=== PATIENT | female | born 1980 | race Hispanic/Latino ===

== ENCOUNTER 2017-06-12 13:31 | Emergency (ER) | payer MEDICAID, SELFPAY ==
[2017-06-12 13:32] VITALS: BP 177/88; PULSE 91; RESP 18; TEMP 37.1; O2SAT 98; BMI 54.8
--- NOTE | 2017-06-12 13:55 | ED.DCSUM_ITS ---
- ER Visit Summary Date of Service: 06/12/17 Chief Complaint: Dental pain History of Present Illness: The patient is a 37 F states she has had mild jaw pain for the past couple of days. She woke this morning with swollen painful gums and some neck pain. She denies fever. Physical Examination: Blood pressure is 177/88, otherwise vitals are normal. Patient is obese female sitting in a bedside chair. She is in no acute distress and appears quite comfortable. Head and neck examination reveals no obvious facial edema or erythema. TMs are clear bilaterally. Intraoral examination reveals the gums around the mandibular central incisors to be edematous and tender to palpation. She has no trismus. There is no tongue elevation or sign of Charanjit's. She is tolerating secretions well and has a strong voice. She does have cervical lymphadenopathy of the left anterior chain. Heart is regular rate and rhythm. Lung sounds are clear. Test Results: [] Emergency Department Course and Treatment: Patient be treated with Pen-Vee K, first dose given here. She is given a dental referral list for follow-up. Treatment Plan: [] Disposition: Discharge Impression: Odontalgia This note was generated with [employer] dictation software. It may contain incorrect words, spelling, and punctuation that were not noted in review of the chart prior to signing ED Disposition - Plan for ED Patient: Chief Complaint: Dental Referrals: Senait Cherry DO [Primary Care Provider] -
--- NOTE | 2017-06-12 13:55 | ED.DEP ---
ED Disposition - Plan for ED Patient: Disposition: Home or Assisted Living Chief Complaint: Dental Instructions: ED Tooth Pain Prescriptions: Penicillin V Potassium 500 mg PO 4X/DAY #40 tablet Additional Instructions: Dental list provided.
[2017-06-12] MEDS: Penicillin Vk 250 MG Tablet 500 MG PO (14:03)
== END 2017-06-12 14:05 | disposition home or self-care (01) ==
PROVIDERS: Emergency Provider Emergency Medicine; Family Provider Family Medicine; PCP Family Medicine
DX: K08.89 Other specified disorders of teeth and supporting structures (principal); I10 Essential (primary) hypertension; E66.9 Obesity, unspecified; Z68.43 Body mass index [BMI] 50.0-59.9, adult; Z79.899 Other long term (current) drug therapy
CPT/HCPCS: 99283

== ENCOUNTER 2017-10-02 12:59 | Emergency (ER) | payer MEDICAID, SELFPAY ==
[2017-10-02 13:00] VITALS: BP 154/79; PULSE 89; RESP 16; TEMP 37.1; O2SAT 98; BMI 57.9
--- NOTE | 2017-10-02 13:20 | VDLE_ITS ---
Reason For Study: Swelling RIGHT LEFT GSV is normal. GSV is normal. CFV is compressible, spontaneous, phasic, CFV is compressible, spontaneous, phasic, competent and demonstrates normal competent, and demonstrates normal augmentation. augmentation. FV is compressible, spontaneous, phasic, FV is compressible, spontaneous, phasic, competent and demonstrates normal competent and demonstrates normal augmentation. augmentation. POP V is compressible, spontaneous, phasic, POP V is compressible, spontaneous, phasic, competent and demonstrates normal competent and demonstrates normal augmentation. augmentation. T/P Trunk is compressible. T/P Trunk is compressible. PTV is compressible. PTV is compressible. RT PerV is compressible. LT PerV is compressible. Procedure Exam performed portable in ED. A preliminary report was called and/or faxed to Dr. Hall. Interpretation Summary Deep veins of the lower extremities are bilaterally patent and compressible segmentally. There is no evidence of deep vein thrombosis on either side. Valvular competence appears intact within the proximal deep venous systems bilaterally. The greater saphenous veins appear bilaterally patent and compressible segmentally. Ordering Physician: Moses Hall Referring Physician: Senait Cherry Performed By: Christine Joe, NICOLE, RVT
[2017-10-02 14:14] LABS: Anion Gap 7 (5-15); BUN 10 mg/dL (7-18); BUN/Creat Ratio 12.7 RATIO (10-20); Calcium,Total 8.8 mg/dL (8.5-10.1); Chloride 106 mmol/L (98-107); Creatinine, Serum 0.79 mg/dL (0.55-1.02); EST Glomerular Filtration Rate 87 mL/min (>60); Est Glom Filt Rate - Afr Amer 105 mL/min (>60); Estimated Creatinine Clearance 91.27 ml/min; Glucose 157 mg/dL (74-106); Potassium 3.8 mmol/L (3.5-5.1); Sodium Level 140 mmol/L (136-145)
--- NOTE | 2017-10-02 14:28 | ED.VISSUMM ---
- ER Visit Summary Date of Service: 10/02/17 Chief Complaint: [Bilateral lower extremity edema] History of Present Illness: The patient is a 37 F [presents the emergency department with complaint of swelling in her legs over last 2 weeks. Patient's noticed swelling more when she is up and active. Patient had some discomfort into her right calf and right thigh with swelling. Patient denies any chest pain or shortness of breath. Patient denies recent travel or surgery. Patient at times had some tingling in her right foot. Patient does have a history of hypertension, sleep apnea, and palpitations. Patient states that she used to be on a water pill but has not been for some time.] Physical Examination: [HEENT-PERRLA, EOMI. Cranial nerves II through XII grossly intact. TMs clear. Mucous membranes moist. No adenopathy. Cardiovascular-regular rate and rhythm without murmur or ectopy Lungs-clear to auscultation, chest wall stable without crepitus or subcu emphysema Abdomen-normoactive bowel sounds, soft, nontender, no rebound or rigidity, no peritoneal signs. Extremities-intact ?4, normal range of motion, normal pulses, atraumatic]. No significant edema of the lower extremities noted. Test Results: [BMP obtained showed normal chemistries and a BUN of 10 and a creatinine of 0.79. Glucose was slightly elevated 157. Venous Dopplers of both lower extremities were negative for DVT.] Emergency Department Course and Treatment: [] Treatment Plan: [Patient advised to follow-up with her primary care physician within next 3-5 days. Patient advised that she may want to wear compression stockings and discussed with her primary care physician about possibly restarting a diuretic] Disposition: [Discharged home stable condition.] Impression: [Bilateral lower extremity edema suspect venous insufficiency.] This note was generated with [employer] dictation software. It may contain incorrect words, spelling, and punctuation that were not noted in review of the chart prior to signing ED Disposition - Plan for ED Patient: Chief Complaint: Edema Referrals: Senait Cherry DO [Primary Care Provider] -
--- NOTE | 2017-10-02 14:30 | ED.DEP ---
ED Disposition - Plan for ED Patient: Chief Complaint: Edema Instructions: ED Leg Swelling Bilateral Referrals: Senait Cherry DO [Primary Care Provider] - 3-5 Days
[2017-10-02 14:43] VITALS: BP 165/89; PULSE 68; RESP 14; O2SAT 96
== END 2017-10-02 14:44 | disposition home or self-care (01) ==
PROVIDERS: Emergency Provider Emergency Medicine; Family Provider Family Medicine; PCP Family Medicine
DX: R60.0 Localized edema (principal); I10 Essential (primary) hypertension; Z79.899 Other long term (current) drug therapy
CPT/HCPCS: 36415; 80048; 93970; 99282

== ENCOUNTER 2019-01-04 13:33 | Emergency (ER) | payer MEDICAID, SELFPAY ==
[2018-08-25 11:09] VITALS: BMI 56.6
[2019-01-04] VITALS (7 sets, daily range): BP systolic 104–159; BP diastolic 66–85; PULSE 80–92; RESP 14–18; TEMP 36.6; O2SAT 96–98; BMI 54.3
--- NOTE | 2019-01-04 14:11 | EKG12_ITS ---
Test Reason : CP Blood Pressure : / mmHG Vent. Rate : 085 BPM Atrial Rate : 085 BPM P-R Int : 146 ms QRS Dur : 072 ms QT Int : 374 ms P-R-T Axes : 031 044 028 degrees QTc Int : 445 ms Normal sinus rhythm with sinus arrhythmia Normal ECG Confirmed by JEFF PAREDES, VIDAL ([id number]), copy editor GOPI RIVERO ([id number]) on 01/07/2019 10:53:16 AM Referred By: ROLDAN Confirmed By:VIDAL AGUILAR MD
--- NOTE | 2019-01-04 14:15 | RAD_ITS ---
STUDY: X-RAY CHEST REASON FOR EXAM: Female, 39 years old. Chest pain. TECHNIQUE: Single AP portable view of the chest. COMPARISON: Comparison is made with prior study dated August 24, 2015. FINDINGS: EKG lead clips are seen. The lungs are clear and expanded. There is no demonstrated pleural abnormality. Normal size heart. Normal mediastinum and brendan. Normal visualized pulmonary arteries. Normal visualized aortic arch and descending thoracic aorta. Normal visualized thoracic spine. Normal visualized ribs, clavicles, and shoulders. There is no demonstrated abnormality of the visualized soft tissue structures of the upper abdomen. RAD/Chest 1 View (Portable) IMPRESSION: Normal x-ray examination of the chest. Electronically Signed: Fabian Toledo, at 14:38 EDT , Service support ,
[2019-01-04 14:24] LABS: Absolute Lymphocyte Count 1.61 X10^3/uL (0.83-4.51); Absolute Neutrophil Count 2.9 X10^3/uL (2.0-7.7); Basophil# 0.01 X10^3/uL; Basophil% 0.2 % (0-1); Eosinophil# 0.08 X10^3/uL; Eosinophils% 1.6 % (0-5); Hematocrit 32.9 % (37-47); Hemoglobin 9.4 g/dL (12.0-15.0); Lymphocyte # 1.61 X10^3/ul (4.0); Lymphocyte % 33.1 % (19-41); Mean Corp Hgb Conc 28.6 g/dL (32-36); Mean Corpuscular Hgb 19.1 pg (27.0-32.0); Mean Corpuscular Volume 66.9 fL (81-99); Mean Platelet Vol. 10.3 fl (6.2-12.0); Monocyte# 0.27 X10^3/uL; Monocyte% 5.6 % (0-10); NRBC Flagged by Analyzer 0 % (0-5); Neutrophil # 2.87 X10^3/uL (2.7-7.7); Neutrophil % 59.1 % (47-70); Platelet Count 220 K/mm3 (150-450); RBC Distribution Width CV 15.9 % (11.6-14.6); RBC Distribution Width SD 37.6 fl (35.1-43.9); Red Blood Count 4.92 M/mm3 (4.2-5.4); White Blood Count 4.9 K/mm3 (4.4-11.0)
[2019-01-04 14:37] LABS: D-Dimer Quantitative (DVT/PE) < 0.27 FEU/ug/m (0.27-0.49)
[2019-01-04] MEDS: Aspirin 81 MG TAB.CHEW 324 MG PO (14:38)
[2019-01-04] MEDS: 0.9% Normal Saline 1,000 ML 150 ML IV (14:39)
[2019-01-04] MEDS: Nitroglycerin SL (ED/IMG/CATH) 0.4 MG TABLET SUBLINGUAL ×3 (14:40→15:04)
[2019-01-04 14:43] LABS: Anion Gap 8 (5-15); BUN 9 mg/dL (7-18); Calcium,Total 8.9 mg/dL (8.5-10.1); Chloride 105 mmol/L (98-107); Creatinine, Serum 0.69 mg/dL (0.55-1.02); EST Glomerular Filtration Rate 100 mL/min (>60); Est Glom Filt Rate - Afr Amer 121 mL/min (>60); Estimated Creatinine Clearance 102.47 ml/min; Glucose 208 mg/dL (74-106); Potassium 3.5 mmol/L (3.5-5.1); Sodium Level 139 mmol/L (136-145)
--- NOTE | 2019-01-04 15:11 | ED.DCSUM_ITS ---
- ER Visit Summary Date of Service: 01/04/19 Chief Complaint: [Chest pain History of present illness: The patient is a 39-year-old female who presents to the emergency department chest discomfort that started around 3:30 AM. Patient states that she woke up with a tightness across her chest and at times feels it up into her back. Patient states that she is had chronic chest pain issues and has been evaluated by cardiology and has been told that her heart is fine. Patient does have a history of hypertension and history of GERD. Patient also has some chronic neck pain issues and she is not sure if the paresthesias intermittently in her arm are related to her neck.] Patient denies any recent travel or surgery. No significant family history of heart disease. Physical Examination: [HEENT-PERRLA, EOMI. Cranial nerves II through XII grossly intact. TMs clear. Mucous membranes moist. No adenopathy. Cardiovascular-regular rate and rhythm without murmur or ectopy Lungs-clear to auscultation, chest wall stable without crepitus or subcu emphysema Abdomen-normoactive bowel sounds, soft, nontender, no rebound or rigidity, no peritoneal signs. Extremities-intact ?4, normal range of motion, normal pulses, atraumatic] Test Results: [EKG obtained on arrival shows sinus rhythm with a ventricular rate of 85 bpm with patient with PACs. CBC with differential obtained was normal. Chemistries unremarkable. Troponin is less than 1015. D-dimer was less than 0.27. Chest x-ray was normal.] Emergency Department Course and Treatment: [Patient initially received aspirin and was given sublingual nitro which may have helped her discomfort minimally. Patient was also ordered a GI cocktail.] Treatment Plan: [Patient advised to follow-up with primary care physician within next 3 to 5 days. Patient is considered low risk HEAVEN score of 0. Patient had a heart score of 1.] Disposition: [Discharged home in stable condition.] Impression: [Chest pain-etiology uncertain] This note was generated with [employer] dictation software. It may contain incorrect words, spelling, and punctuation that were not noted in review of the chart prior to signing ED Disposition - Plan for ED Patient: Referrals: Senait Cherry DO [Primary Care Provider] -
--- NOTE | 2019-01-04 15:15 | ED.DEP ---
ED Disposition - Plan for ED Patient: Instructions: CHEST PAIN, Uncertain Cause Referrals: Senait Cherry DO [Primary Care Provider] - 3-5 Days
[2019-01-04 15:35] LABS: Erythrocyte Sedimentation Rate 30 mm/hr (0-20)
[2019-01-04] MEDS: Mag Hydrox/Al Hydrox/Simeth 30 ML UDC PO (15:37)
--- NOTE | 2019-01-04 15:42 | ED.RN ---
PT GIVEN WRITTEN AND VERBAL DISCHARGE INSTRUCTIONS. PT VERBALIZES UNDERSTANDING AND DENIES ANY FURTHER QUESTIONS. IV D/C AND COVERED WITH 2X2 GAUZE AND PAPER TAPE. PT DRESSES SELF AND AMBULATES OUT OF DEPT BY SELF.
== END 2019-01-04 15:44 | disposition home or self-care (01) ==
LOC: ED 14:33
PROVIDERS: Emergency Provider Emergency Medicine; Family Provider Family Medicine; PCP Family Medicine
DX: R07.9 Chest pain, unspecified (principal); I10 Essential (primary) hypertension; K21.9 Gastro-esophageal reflux disease without esophagitis; Z79.899 Other long term (current) drug therapy
CPT/HCPCS: 71045; 80048; 84484; 85025; 85379; 85652; 93005; 96360; 99285; A4216

== ENCOUNTER 2019-02-12 17:46 | Emergency (ER) | payer MEDICAID, SELFPAY ==
[2019-01-04 13:34] VITALS: BMI 54.3
[2019-02-12 17:46] VITALS: BP 159/80; PULSE 90; RESP 17; TEMP 36.1; O2SAT 96; BMI 54.2
--- NOTE | 2019-02-12 18:27 | ED.VISSUMM ---
- ER Visit Summary Date of Service: 02/12/19 Chief Complaint: Dental pain History of Present Illness: The patient is a 39 F who states that she woke today she had some left mandible facial swelling. She notes some swelling and tenderness along her gumline. She has an appointment in March with dentistry. States she has not been to the dentist for a while. Physical Examination: Afebrile vital signs stable Left lower gumline shows some mild erythema and some very early erosion of the molar area. There is an area of focal swelling over the medial aspect of the premolars. Floor the mouth is soft. Mandible is tender on the left. No overlying facial erythema or significant swelling. There is no trismus. Emergency Department Course and Treatment: Patient will be started on penicillin and chlorhexidine rinse. She was advised to call her dentist on Thursday and see if she can get an earlier Impression: 1. Dental abscess This note was generated with [employer] dictation software. It may contain incorrect words, spelling, and punctuation that were not noted in review of the chart prior to signing ED Disposition - Plan for ED Patient: Disposition: Home or Assisted Living Instructions: Dental Abscess Prescriptions: Chlorhexidine Gluconate [Paroex] 15 ml MM BID #1 bottle Prescription Printed Penicillin V Potassium 500 mg PO 4X/DAY #40 tab Prescription Printed Additional Instructions: Call your dentist on Thursday to see if he can get an earlier
[2019-02-12 18:40] VITALS: BP 148/78; PULSE 92; RESP 15; O2SAT 96
== END 2019-02-12 18:41 | disposition home or self-care (01) ==
LOC: ED 18:34
PROVIDERS: Emergency Provider Emergency Medicine; Family Provider Family Medicine; PCP Family Medicine
DX: K04.7 Periapical abscess without sinus (principal); I10 Essential (primary) hypertension; Z79.899 Other long term (current) drug therapy
CPT/HCPCS: 99282

== ENCOUNTER 2019-02-13 21:38 | Emergency (ER) | payer MEDICAID, SELFPAY ==
[2019-02-12 17:46] VITALS: BMI 54.2
[2019-02-13 21:39] VITALS: BP 148/81; PULSE 86; RESP 15; TEMP 36.6; O2SAT 96; BMI 54.3
--- NOTE | 2019-02-13 22:20 | ED.DCSUM_ITS ---
History of Present Illness Chief Complaint: Abscess Informant: Patient Narrative: Stated she was seen here yesterday and started antibiotics today for a left lower dental infection. She noticed she had a tender lymph node in her left posterior neck. She was told if she develops any new swelling to come in for for further evaluation. She is using [id number]'s for this. Patient denies any fevers or chills. Current severity is mild. There is no redness. There is no drainage to her mouth. - Past Medical History (1) HTN (hypertension), benign Status: Chronic (2) Heart palpitations Status: Chronic (3) Menorrhagia with irregular cycle Status: Chronic (4) GAUTAM (obstructive sleep apnea) Status: Chronic (5) H/O section Status: Resolved Comment: X 4 (6) History of lumpectomy Status: Resolved Past Medical History - Allergies and Home Meds Allergies/Adverse Reactions: Allergies No Known Allergies Allergy (Verified 02/12/19 17:46) Primary Care Physician: Senait Cherry DO [Primary Care Provider] - Prior records reviewed: Yes Past Medical History: - - See problem list Surgical History: noncontributory Lives: With Family Smoking Status: Current every day smoker Alcohol: None Drugs: None Review of Systems General: Denies: Chills, Fever, Sweats Eyes: Denies: Visual changes - bilaterally, Diplopia ENT: Denies: Rhinorrhea, Sore throat Cardiovascular: Denies: Chest pain, Palpitations Respiratory: Denies: Dyspnea, Cough, Dyspnea on exertion Gastrointestinal: Denies: Abdominal pain, Nausea, Vomiting, Diarrhea, Melena, Hematochezia Genitourinary: Denies: Dysuria, Hematuria, Frequency Musculoskeletal: Reports: Neck pain - See HPI. Denies: Back pain, Extremity Pain Skin: Denies: Rash, Wounds Neurological: Denies: Headache, Weakness, Numbness Physical Exam Vital Signs/Narrative: Vital Signs Temp Pulse Resp BP Pulse Ox 02/13/19 21:39 97.8 F 86 15 148/81 H 96 General: Well nourished, Well developed, No Acute Distress Head: Normocephalic, Atraumatic Eyes: Perrl, EOMI ENT: Moist mucous membranes, No rhinorrhea Neck: Supple, Nontender, - - Mild lymph node in the left posterior cervical chain. Very mild tenderness to this area. No sublingual fullness. No evidence of Saeid's angina total exam shows no dental abscess in the gumline. No s welling noted. No facial swelling. Cardiovascular: Regular rate, Regular rhythm, No murmurs Respiratory: No distress, CTA bilaterally, Chest nontender Abdomen: Soft, Nontender, Nondistended, Normal bowel sounds Back: Nontender, Normal Inspection Extremities: Nontender, No edema Skin: Normal color, No rash Neurological: Alert, Oriented x3, Cranial nerves II-XII grossly intact, Normal Strength, Normal Sensation Psychological: Normal affect, Normal Mood Diagnostic/Tx/Re-eval - Medical Decision Making Patient reassured. There is no evidence of Ludewig's angina or spread. She will continue her antibiotics and therapy at home and will follow-up with dentist. Given 1 dose of oxycodone ED Disposition - Plan for ED Patient: Disposition: Home or Assisted Living Diagnosis: Lymph node enlargement Instructions: Dental Abscess Referrals: Senait Cherry DO [Primary Care Provider] -
[2019-02-13 22:33] VITALS: RESP 16
[2019-02-13] MEDS: oxyCODONE 5 MG Tablet 10 MG PO (22:33)
== END 2019-02-13 22:34 | disposition home or self-care (01) ==
PROVIDERS: Emergency Provider Emergency Medicine; Family Provider Family Medicine; PCP Family Medicine
DX: R59.0 Localized enlarged lymph nodes (principal); K04.7 Periapical abscess without sinus; I10 Essential (primary) hypertension; F17.200 Nicotine dependence, unspecified, uncomplicated; Z79.899 Other long term (current) drug therapy
CPT/HCPCS: 99282

== ENCOUNTER → 2019-04-19 08:42 | Outpatient (CLI) | payer MEDICAID, SELFPAY ==
--- NOTE | 2019-04-19 08:50 | BI_ITS ---
MAMMOGRAPHY - BILATERAL DIAGNOSTIC REASON FOR EXAM: Female, 39 years old. Left retroareolar breast. PERTINENT HISTORY: Remote left excisional breast biopsy TECHNIQUE: Digital bilateral breast danyell (3D mammographic acquisition) in the CC and MLO projections. 2-D mediolateral oblique (MLO) and craniocaudad (CC) views of both breasts were obtained. CAD: Full Field Digital Mammography with Computer Added Detection was performed. COMPARISON: None. Baseline examination. FINDINGS: Breast Composition: The breasts are almost entirely fatty. There are no dominant masses or suspicious calcifications. Benign appearing bilateral axillary nodes. No other significant abnormalities are identified. BI/DIAG MAMM W/CAD, BILAT IMPRESSION: Negative diagnostic mammogram. With the patient''s history of a palpable lump in the left breast, correlation with ultrasound is recommended. ASSESSMENT CATEGORY: BIRADS Category 0: Incomplete. Need additional imaging evaluation. A letter regarding these results will be sent to the patient by the facility within 30 days. Approximately 10% of breast cancers are not detected by mammography. A normal mammogram should not delay biopsy of a clinically suspicious abnormality. Electronically Signed: Fabian Toledo, at 10:46 EST , Service support ,
--- NOTE | 2019-04-19 09:00 | US_ITS ---
STUDY: ULTRASOUND BREAST - LEFT REASON FOR EXAM: Female, 39 years old. Palpable lump left breast. TECHNIQUE: Axial and longitudinal images of the LEFT breast were performed with a high resolution ultrasound transducer. # OF IMAGES: 13 COMPARISON: Comparison is made with prior mammogram done earlier today. FINDINGS: LEFT Breast: The palpable abnormality corresponds to a 1.6 cm x 1.8 cm x 0.5 cm heterogeneous density with the central fluid component in the subcutaneous tissue just deep to the skin. This most likely represents an infected sebaceous cyst. Clinical correlation recommended. US/Breast Limited Unilateral IMPRESSION: Abundant amount to correspond to 1.6 cm x 1.8 cm x 0.5 cm heterogeneous superficial density suggestive of an infected sebaceous cyst. Clinical correlation is recommended. ASSESSMENT CATEGORY: BIRADS Category 2: Benign. A letter regarding these results will be sent to the patient by the facility within 30 days. Electronically Signed: Fabian Toledo, at 12:04 EST , Service support ,
== END ==
PROVIDERS: PCP Family Medicine; Referring Provider Obstetrics & Gynecology; Visit Provider Obstetrics & Gynecology
DX: N63.23 Unspecified lump in the left breast, lower outer quadrant (principal)
CPT/HCPCS: 76642; 77062; 77066; G0279

== ENCOUNTER 2020-03-13 16:16 | Emergency (ER) | payer MEDICAID, SELFPAY ==
[2019-07-28 13:58] VITALS: BMI 50.5
[2020-03-13 16:17] VITALS: BP 153/90; PULSE 88; RESP 16; TEMP 35.3; O2SAT 97; BMI 53.2
[2020-03-13 16:48] LABS: Bacteria 0 SEEN /hpf (None Seen); Mucous, Urine 0 SEEN /hpf (<or=2+)
[2020-03-13 17:01] LABS: Internal QC Validated? YES +Cl - CLEAR BKGD; Pregnancy, Urine Negative Negative
[2020-03-13 17:04] LABS: Color, Urine Yellow (Yellow); Glucose, Dipstick 1000 mg/dl (Normal); Ketone-Dipstick Negative (Negative); Leukocyte Esterase-Dipstick 500 /ul (Negative); Nitrite-Dipstick Negative (Negative); Occult Blood-Urine 250 /ul (Negative); Protein-Dipstick 15 mg/dl (Negative); Urine Bilirubin Dipstick Negative (Negative); Urine Clarity Cloudy (Clear); Urine Urobilinogen Normal (Normal)
[2020-03-13 17:25] LABS: Red Blood Cells-Urine 50-100 SEEN /hpf (0-5); Squamous Epithelial Cells - UA 0-5 SEEN /hpf (5-10); White Blood Cells 50-100 SEEN /hpf (0-5)
--- NOTE | 2020-03-13 17:36 | ED.VISSUMM ---
- ER Visit Summary Date of Service: 03/13/20 Chief Complaint: UTI History of Present Illness: The patient is a 40 F with 4 days of dysuria and frequency. She had some clots as well but they resolved. She is not on blood thinners. No history of cancer. No history of kidney stones. No other history of kidney or bladder problems. Physical Examination: Afebrile and vital signs unremarkable. Back is nontender. Exam unremarkable. Test Results: Urinalysis shows signs of urine infection with microscopic hematuria. hCG negative. Culture pending. Emergency Department Course and Treatment: Patient declined pain meds. She was treated with Macrobid here. Follow-up as an outpatient. Patient notified that she is spilling glucose in her urine. No known history of diabetes. She will follow-up with her doctor for further evaluation. Treatment Plan: As above Disposition: Discharge Impression: UTI, cystitis with hematuria This note was generated with [employer] dictation software. It may contain incorrect words, spelling, and punctuation that were not noted in review of the chart prior to signing ED Disposition - Plan for ED Patient: Instructions: ED Bladder Infection, Female (Adult) Prescriptions: Nitrofurantoin Macrocrystals [Macrobid] 100 mg PO Q12 #10 cap Prescription Printed Referrals: Senait Cherry DO [Primary Care Provider] -
[2020-03-13] MEDS: Nitrofurantoin Macrocrystals 100 MG Capsule PO (17:45)
== END 2020-03-13 17:47 | disposition home or self-care (01) ==
LOC: ED 16:38
PROVIDERS: Emergency Provider Emergency Medicine; PCP Family Medicine
DX: N30.91 Cystitis, unspecified with hematuria (principal); I10 Essential (primary) hypertension; Z72.0 Tobacco use
CPT/HCPCS: 81001; 81025; 87086; 87088; 99283

== ENCOUNTER 2020-08-10 22:10 | Emergency (ER) | payer MEDICAID, SELFPAY ==
[2020-08-10 22:11] VITALS: BP 156/105; PULSE 88; RESP 16; TEMP 36.8; O2SAT 96; BMI 51.7
--- NOTE | 2020-08-10 23:04 | EX.ED.DYSGE1 ---
HPI History of Present Illness Chief Complaint: Other, Pain/Inj Detail of Chief Complaint: Left neck and shoulder pain Informant: patient Onset/Context/Timing Onset: Days (4 days) Context: Gradual Onset Timing: Waxes and wanes Current Severity: Moderate Maximum Severity: Moderate Narrative Narrative: Patient presents with left-sided neck and shoulder pain. Patient reports having similar in the past but usually will go away after couple days. She states today is day 4 and pain has not let up yet. She has no recent injury. No paresthesias or arm weakness. She is been alternating Tylenol and ibuprofen without improvement. [facility] Medical History (Updated 08/10/20 @ 23:[address] Ana Whitfield MD) Back pain Essential (primary) hypertension Intermittent palpitations Menorrhagia with irregular cycle GAUTAM (obstructive sleep apnea) Home Medications valacyclovir 500 mg tablet 1 tab PO DAILY 05/28/19 [History Last Taken Unknown] lisinopril 20 mg tablet 20 mg PO DAILY #90 tab 12/23/19 [Rx Last Taken Unknown] amlodipine 10 mg tablet 10 mg PO DAILY #30 tab 01/02/20 [Rx Last Taken Unknown] metoprolol succinate 50 mg tablet,extended release 24 hr 50 mg PO QDAY #30 tab 01/02/20 [Rx Last Taken Unknown] omeprazole 40 mg capsule,delayed release 40 mg PO DAILY #30 cap 02/16/20 [Rx Last Taken Unknown] nitrofurantoin monohyd/m-cryst 100 mg PO Q12 #10 cap 03/13/20 [Rx Last Taken Unknown] cyclobenzaprine 10 mg PO BID PRN #10 tab 08/10/20 [Rx Last Taken Unknown] lidocaine [Lidoderm] 2 patch TOPICAL DAILY PRN #8 ea 08/10/20 [Rx Last Taken Unknown] naproxen [Naprosyn] 500 mg PO BID PRN #20 tab 08/10/20 [Rx Last Taken Unknown] Allergy/AdvReac Type Severity Reaction Status Date / Time No Known Allergies Allergy Verified 08/10/20 22:13 Family History Father Hypertension Diabetes Heart disease Mother Diabetes Hypertension Surgical History H/O section History of lumpectomy Social History Smoking Status: Never smoker alcohol intake: never substance use type: does not use caffeine: Yes Type: tea Number of servings: 6 ROS ROS ED Constitutional Constitutional ED: Denies chills or fever(s) Eyes Eyes: Denies change in vision ENT ENT ED: Denies sore throat Cardiovascular Cardiovascular: Denies chest pain Respiratory/Chest Respiratory/Chest: Denies cough or dyspnea Gastrointestinal Gastrointestinal: Denies abdominal pain, diarrhea, nausea or vomiting Genitourinary Genitourinary ED: Denies dysuria Musculoskeletal Musculoskeletal: Reports arthralgias and neck pain Integumentary Denies rash Neurologic Neurologic: Denies headache(s), paresthesias or weakness Psychiatric Psychiatric: Denies anxiety or depression Endocrine Endocrinology: Denies polydipsia or polyuria Allergic/Immunologic Allergic/Immunologic ED: Denies urticaria EXAM Physical Exam Const Vital Signs: 08/10/20 22:11 Temperature 98.2 F Temperature Source Temporal Pulse Rate 88 Respiratory Rate 16 Blood Pressure 156/105 H Blood Pressure Mean 122 Pulse Ox 96 Oxygen Delivery Method Room Air Positive well nourished and well developed General Appearance ED: well developed HEENT Reports normocephalic and head/scalp atraumatic Eyes PERRL and EOMs intact bilaterally Neck supple Neck Narrative: No midline cervical tenderness. Reproducible tenderness in the left cervical paraspinal muscles. Lymph Lymphatic Narrative: Small enlarged lymph node just beneath the left ear. No overlying cellulitis or sign of infection. Chest Wall inspection of chest normal and palpation of chest normal Resp normal respiratory effort and clear to auscultation bilaterally Cardio regular rate and regular rhythm GI normal to inspection, nondistended, normoactive bowel sounds Palpation: soft Back/Spine no CVA tenderness Extremity normal to inspection Extremity Narrative: Muscular tenderness over the top of the left shoulder. Full range of motion at the shoulder itself with strong distal pulses. Neuro oriented x3 and no sensory deficits noted Sensorium / Orientation: alert Motor Exam: strength 5/5 throughout Psych mental status grossly normal Skin no rashes or lesions noted [facility] Treatment and Re-Evaluation Comments:: Patient has evidence of muscle strain with spasm. She will be given a Lidoderm patch, naproxen, and Flexeril. First doses are given here and patient's prescriptions will be sent to [facility] for her. Discharge Plan Triage Chief Complaint: Other, Pain/Inj ED Provider: Ana Whitfield Dx/Rx/DC Orders Clinical Impression: Muscle spasm Instructions: ED Muscle Spasm Prescriptions: New lidocaine [Lidoderm] 5 % adhesive patch,medicated 2 patch topical DAILY PRN (Reason: muscle spasm) Qty: 8 RF: 0 naproxen [Naprosyn] 500 mg tablet 500 mg PO BID PRN (Reason: pain) Qty: 20 RF: 0 cyclobenzaprine 10 mg tablet 10 mg PO BID PRN (Reason: muscle spasm) Qty: 10 RF: 0 No Action valacyclovir 500 mg tablet 1 tab PO DAILY RF: 0 nitrofurantoin monohyd/m-cryst 100 MG capsule 100 mg PO Q12 Qty: 10 RF: 0 lisinopril 20 mg tablet 20 mg PO DAILY Qty: 90 RF: 3 metoprolol succinate 50 mg tablet extended release 24 hr 50 mg PO QDAY Qty: 30 RF: 11 amlodipine 10 mg tablet 10 mg PO DAILY Qty: 30 RF: 11 omeprazole 40 mg capsule,delayed release(DR/EC) 40 mg PO DAILY Qty: 30 RF: 11 Primary Care Provider: Senait Cherry Referrals: Senait Cherry DO [Primary Care Provider] - 3-5 Days if not improving Disposition Disposition: Home, self care
[2020-08-10] MEDS: Naproxen 500 MG Tablet PO (23:31)
[2020-08-10] MEDS: cycloBENZAPRine HCl 10 MG Tablet PO (23:31)
[2020-08-10] MEDS: Lidocaine 5% Patch 1 PATCH TOPICAL (23:31)
[2020-08-10 23:39] VITALS: BP 148/80; PULSE 82; RESP 18
== END 2020-08-10 23:39 | disposition home or self-care (01) ==
LOC: ED 23:14
PROVIDERS: Emergency Provider Emergency Medicine; PCP Family Medicine
DX: M62.838 Other muscle spasm (principal); I10 Essential (primary) hypertension; Z79.899 Other long term (current) drug therapy
CPT/HCPCS: 99284

== ENCOUNTER → 2020-08-23 11:33 | Outpatient (CLI) | payer MEDICAID, SELFPAY ==
[2020-08-10 22:11] VITALS: BMI 51.7
[2020-08-23 12:57] LABS: Hemoglobin A1c 11.7 % (3.8-5.6); T4 Free Direct 1.29 ng/dL (0.76-1.46); Thyroid Stim Hormone (TSH) 1.56 uIU/mL (0.358-3.74)
== END ==
PROVIDERS: PCP Family Medicine; Visit Provider Student in an Organized Health Care Education/Training Program
DX: Z13.1 Encounter for screening for diabetes mellitus (principal)
CPT/HCPCS: 36415; 83036; 84439; 84443

== ENCOUNTER → 2020-09-06 12:04 | Outpatient (CLI) | payer MEDICAID, SELFPAY ==
[2020-08-10 22:11] VITALS: BMI 51.7
--- NOTE | 2020-09-06 12:07 | BI_ITS ---
MAMMOGRAPHY - BILATERAL SCREENING 3-D TOMOSYNTHESIS REASON FOR EXAM: Female, 40 years old. SCREENING PERTINENT HISTORY: No significant family history. TECHNIQUE: 2-D mammograms and 3-D Tomosynthesis of the breast (s) were performed. CAD was performed. COMPARISON: 04/19/2019 FINDINGS: The breast composition is of fatty tissue. Scattered benign calcifications are seen particularly on the left. No dense spiculated masses or suspicious microcalcifications are identified. No architectural distortion is identified. There is no skin thickening or nipple retraction. Benign-appearing lymph nodes noted in the axillary areas. There has been no significant change since the prior study since the study of 04/19/2019 BI/SCRN MAMM (CAD)W/CARMINE BILAT IMPRESSION: No mammographic signs of malignancy. Routine yearly mammograms recommended. ASSESSMENT CATEGORY: BIRADS Category 1: Negative. A letter regarding these results will be sent to the patient by the facility within 30 days. FOLLOW UP RECOMMENDATION: Yearly follow up mammogram recommended. (A) Approximately 10% of breast cancers are not detected by mammography. A normal mammogram should not delay biopsy of a clinically suspicious abnormality. Electronically Signed: Yu Farias, at 12:46 EDT Tel , Service support ,
== END ==
PROVIDERS: PCP Family Medicine; Referring Provider Student in an Organized Health Care Education/Training Program; Visit Provider Student in an Organized Health Care Education/Training Program
DX: Z12.31 Encounter for screening mammogram for malignant neoplasm of breast (principal)
CPT/HCPCS: 77063; 77067

== ENCOUNTER 2020-10-11 14:43 | Emergency (ER) | payer MEDICAID, SELFPAY ==
[2020-10-11 14:44] VITALS: BP 149/82; PULSE 84; RESP 15; TEMP 36.3; O2SAT 100; BMI 47.9
--- NOTE | 2020-10-11 17:31 | EDS_ITS ---
HPI History of Present Illness Chief Complaint: Lower Extremity Injury Informant: patient Narrative Narrative: Patient is a 40-year-old female with history of chronic back pain, hypertension newly diagnosed diabetes mellitus presenting with right-sided low back pain that radiates to her leg. Patient states that she been having intermittent pain in her back and right lower quadrant for the past few weeks. She states sometimes the pain becomes very sharp and radiates down her legs. She notes that her leg started to give out when the pain is severe. She been taking Tylenol and ibuprofen for her pain. Patient notes that she gets tingling in both her toes and her feet. She states she was just diagnosed with diabetes mellitus and started Metformin. Her A1c was 11 or 12. Patient denies any urinary symptoms including hematuria, incontinence or hematuria. She denies any saddle anesthesia. Denies any bowel incontinence. She notes her pain is worse with movement and activity. 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 This seems to be exacerbating her pain. No report of any fever or chills. [facility] Medical History (Updated 10/11/20 @ 17:[address] Yazmin Vargas, DO) Back pain Essential (primary) hypertension Intermittent palpitations Menorrhagia with irregular cycle GAUTAM (obstructive sleep apnea) Home Medications valacyclovir 500 mg tablet 1 tab PO DAILY 05/28/19 [History Last Taken Unknown] lisinopril 20 mg tablet 20 mg PO DAILY #90 tab 12/23/19 [Rx Last Taken Unknown] amlodipine 10 mg tablet 10 mg PO DAILY #30 tab 01/02/20 [Rx Last Taken Unknown] metoprolol succinate 50 mg tablet,extended release 24 hr 50 mg PO QDAY #30 tab 01/02/20 [Rx Last Taken Unknown] omeprazole 40 mg capsule,delayed release 40 mg PO DAILY #30 cap 02/16/20 [Rx Last Taken Unknown] nitrofurantoin monohyd/m-cryst 100 mg PO Q12 #10 cap 03/13/20 [Rx Last Taken Unknown] cyclobenzaprine 10 mg PO BID PRN #10 tab 08/10/20 [Rx Last Taken Unknown] lidocaine [Lidoderm] 2 patch TOPICAL DAILY PRN #8 ea 08/10/20 [Rx Last Taken Unknown] naproxen [Naprosyn] 500 mg PO BID PRN #20 tab 08/10/20 [Rx Last Taken Unknown] cyclobenzaprine 10 mg PO TID PRN #14 tab 10/11/20 [Rx Last Taken Unknown] Allergy/AdvReac Type Severity Reaction Status Date / Time No Known Allergies Allergy Verified 10/11/20 14:44 Family History Father Hypertension Diabetes Heart disease Mother Diabetes Hypertension Surgical History H/O section History of lumpectomy Social History Smoking Status: Never smoker alcohol intake: never substance use type: does not use caffeine: Yes Type: tea Number of servings: 6 ROS ROS ED Constitutional Constitutional ED: Denies chills or fever(s) Eyes Eyes: Denies blurry vision or change in vision ENT ENT ED: Denies ear pain or rhinorrhea Cardiovascular Cardiovascular: Denies chest pain or palpitations Respiratory/Chest Respiratory/Chest: Denies dyspnea Gastrointestinal Gastrointestinal: Denies abdominal pain, diarrhea or vomiting Genitourinary Genitourinary ED: Denies dysuria, hematuria or urinary frequency Musculoskeletal Musculoskeletal: Reports back pain; Denies arthralgias or myalgias Integumentary Denies rash Neurologic Neurologic: Reports paresthesias; Denies headache(s) or weakness Psychiatric Psychiatric: Denies anxiety or depression EXAM Physical Exam Const Vital Signs: 10/11/20 14:44 Temperature 97.4 F L Temperature Source Temporal Pulse Rate 84 Respiratory Rate 15 Blood Pressure 149/82 H Blood Pressure Mean 104 Pulse Ox 100 Oxygen Delivery Method Room Air Positive well nourished, well developed and obese General Appearance ED: well developed Nutritional Appearance: obese HEENT Reports moist mucous membranes Negative for trauma Eyes PERRL and EOMs intact bilaterally Neck supple and no JVD Resp normal respiratory effort and clear to auscultation bilaterally Cardio regular rate, regular rhythm and no murmurs Cardio Narrative: 2+ bilateral DP and PT pulses GI normal to inspection, nondistended, normoactive bowel sounds and non-tender Palpation: Negative for guarding or rebound tenderness present Back/Spine normal to inspection and no thoracic nor lumbar tenderness General Back: Negative for CVA tenderness Lumbar Spine / Lower Back: straight leg raise positive right and straight leg raise positive - left Extremity normal to inspection Extremity Narrative: Negative logroll bilaterally. No reproducible tenderness palpation on the lower extremity General Extremety ED: Negative for edema or tenderness General Extremity: Negative for edema Neuro oriented x3 and no sensory deficits noted Neuro Narrative: 5 out of 5 plantar flexion and dorsiflexion bilaterally. Sensorium / Orientation: alert Motor Exam: strength 5/5 throughout Psych mental status grossly normal Skin no rashes or lesions noted MDM MDM MDM Narrative Medical decision making narrative: Patient evaluated for atraumatic low back pain. It radiates to her right leg and she feels like her leg is been giving out. Presentation is consistent with sciatica. I suspect is exacerbated by her new work and increased activity level. Patient is given a dose of morphine for pain control in the ER. Should be given a prescription for muscle relaxer and a referral to spine for outpatient follow-up. She is instructed also follow-up with her primary care doctor. She states she has an appointment in about 2 weeks. Patient is not have any findings concerning for cauda equina. Do not think she requires any emergent imaging at this time. She is not have any focal neurologic deficits. Patient is able to ambulate. She is counseled on return precautions. She verbalizes agreement understand with this plan. She is discharged home in stable condition. Discharge Plan Triage Chief Complaint: Lower Extremity Injury ED Provider: Yazmin Vargas Dx/Rx/DC Orders Clinical Impression: Acute low back pain with right-sided sciatica Instructions: ED Back Pain (Acute or Chronic), ED Sciatica Prescriptions: New cyclobenzaprine 10 mg tablet 10 mg PO TID PRN (Reason: muscle spasm) Qty: 14 RF: 0 No Action valacyclovir 500 mg tablet 1 tab PO DAILY RF: 0 nitrofurantoin monohyd/m-cryst 100 MG capsule 100 mg PO Q12 Qty: 10 RF: 0 lidocaine [Lidoderm] 5 % adhesive patch,medicated 2 patch topical DAILY PRN (Reason: muscle spasm) Qty: 8 RF: 0 naproxen [Naprosyn] 500 mg tablet 500 mg PO BID PRN (Reason: pain) Qty: 20 RF: 0 cyclobenzaprine 10 mg tablet 10 mg PO BID PRN (Reason: muscle spasm) Qty: 10 RF: 0 lisinopril 20 mg tablet 20 mg PO DAILY Qty: 90 RF: 3 metoprolol succinate 50 mg tablet extended release 24 hr 50 mg PO QDAY Qty: 30 RF: 11 amlodipine 10 mg tablet 10 mg PO DAILY Qty: 30 RF: 11 omeprazole 40 mg capsule,delayed release(DR/EC) 40 mg PO DAILY Qty: 30 RF: 11 Primary Care Provider: Senait Cherry Referrals: Senait Cherry DO [Primary Care Provider] - Luis Miguel Barraza DO [STAFF PHYSICIAN] - Disposition Disposition: Home, Self Care
[2020-10-11] MEDS: Morphine 4 MG/ML Syringe 6 MG IM (17:35)
[2020-10-11 18:07] VITALS: PULSE 88; RESP 17; O2SAT 97
== END 2020-10-11 18:10 | disposition home or self-care (01) ==
PROVIDERS: Emergency Provider Emergency Medicine; PCP Family Medicine
DX: M54.41 Lumbago with sciatica, right side (principal); I10 Essential (primary) hypertension; E11.9 Type 2 diabetes mellitus without complications; E66.9 Obesity, unspecified; Z68.42 Body mass index [BMI] 45.0-49.9, adult; Z79.84 Long term (current) use of oral hypoglycemic drugs; Z79.899 Other long term (current) drug therapy
CPT/HCPCS: 96372; 99282

== ENCOUNTER → 2020-11-03 07:14 | Outpatient (CLI) | payer MEDICAID, SELFPAY ==
[2020-10-22 08:16] VITALS: BMI 47.9
--- NOTE | 2020-11-03 07:15 | MRI_ITS ---
STUDY: MRI LUMBAR SPINE WITHOUT CONTRAST REASON FOR EXAM: Female, 40 years old. pain into L leg TECHNIQUE: Standardized fat and water weighted pulse sequences were obtained in the sagittal and axial following administration of . COMPARISON: 22 October 2020 plain films FINDINGS: T12-L1: Normal endplates. Normal disc height, hydration and morphology. Normal bilateral facet joints. Normal central canal and bilateral lateral recesses. Normal bilateral intervertebral neural foramina. Normal lumbar lordosis. There is no substantial scoliosis. Normal conus medullaris that terminates at the L1-L2 level L1-2: Normal endplates. Normal disc height, hydration and morphology. Normal bilateral facet joints. Normal central canal and bilateral lateral recesses. Normal bilateral intervertebral neural foramina. L2-3: Normal endplates. Normal disc height, hydration and morphology. Normal bilateral facet joints. Normal central canal and bilateral lateral recesses. Normal bilateral intervertebral neural foramina. L3-4: Minimally degenerated endplates. Mildly decreased disc height, hydration and early degenerative morphology. Degenerated bilateral facet joints. Normal central canal and bilateral lateral recesses. Normal bilateral intervertebral neural foramina. L4-5: Mildly degenerated endplates. Mildly decreased disc height, hydration and degenerative morphology with small central protrusion. Degenerated bilateral facet joints. There is mild thecal sac stenosis. Foramina are patent. Lateral recesses are mildly stenotic. L5-S1: Degenerated endplates with subchondral active degeneration. Decreased disc height, hydration and degenerative morphology with left asymmetric central subarticular and extraforaminal herniation. Degenerated bilateral facet joints. Thecal sac is patent. Left lateral recess and left foramen are stenotic with compressive effect on the left exiting L5 and traversing S1 nerve roots. Right foramen and lateral recesses are patent. Normal visualized sacral ala.Normal visualized paraspinous soft tissue structures. MRI/Spine Lumbar (Routine) IMPRESSION: 1. Left L5-S1 disc herniation with lateral recess and foraminal stenosis. Neurosurgical consultation advised. 2. No moderate or high-grade thecal sac stenosis. Electronically Signed: Kristen Pearl MD at 12:22 EDT Tel , Service support ,
== END ==
PROVIDERS: PCP Family Medicine; Referring Provider Orthopaedic Surgery; Visit Provider Orthopaedic Surgery
DX: M54.16 Radiculopathy, lumbar region (principal); M48.061 Spinal stenosis, lumbar region without neurogenic claudication; M51.27 Other intervertebral disc displacement, lumbosacral region
CPT/HCPCS: 72148

== ENCOUNTER 2020-12-18 17:57 | Emergency (ER) | payer MEDICAID, SELFPAY ==
[2020-12-18 17:57] VITALS: BP 147/94; PULSE 89; RESP 16; TEMP 36.4; O2SAT 100; BMI 45.5
[2020-12-18] MEDS: HYDROmorphone 0.5 MG/0.5 ML SYRINGE IM (19:03)
--- NOTE | 2020-12-18 19:15 | ED.VIS.BACK ---
HPI History of Present Illness Chief Complaint: Back Informant: patient Onset/Context/Timing Onset: Yesterday Timing: Continuous Quality: Aching Location: Lumbar Current Severity: Severe Maximum Severity: Severe Worsened by: improves with Ambulation and Bending Relieved by: Nothing Associated Symptoms Associated Symptoms: Negative for Numbness, Tingling, Radiation to Right Leg, Radiation to Left Leg, Abdominal Pain, Dysuria, Unable to Ambulate, Urinary Retention, Urinary Incontinence, Constipation and Fecal Incontinence Narrative Narrative: Patient presents with low back pain that has been getting progressively worse since yesterday. Patient states pain is constant. Patient states the pain is aching. Patient states it is over the lower lumbar area, worse on the left. Patient states it is worse with bending and ambulation. Patient states nothing has been helping with the pain. Patient states pain radiates into her left hip. Patient denies any paresthesias or weakness. Patient denies any abdominal pain. Patient denies any bowel or bladder changes. Patient denies any saddle anesthesia. [facility] Medical History Back pain Diabetes Essential (primary) hypertension Intermittent palpitations Menorrhagia with irregular cycle GATUAM (obstructive sleep apnea) Home Medications valacyclovir 500 mg tablet 1 tab PO DAILY 05/28/19 [History Last Taken Unknown] omeprazole 40 mg capsule,delayed release 40 mg PO DAILY #30 cap 02/16/20 [Rx Last Taken Unknown] amlodipine 10 mg tablet 10 mg PO DAILY #90 tab 11/22/20 [Rx Last Taken Unknown] lisinopril 20 mg tablet 20 mg PO DAILY #90 tab 11/22/20 [Rx Last Taken Unknown] metoprolol succinate 50 mg tablet,extended release 24 hr 50 mg PO QDAY #90 tab 11/22/20 [Rx Last Taken Unknown] metformin 500 mg tablet,extended release 24 hr 500 mg PO BID tab 11/23/20 [History Last Taken Unknown] cyclobenzaprine 10 mg PO TID PRN #20 tablet 12/18/20 [Rx Last Taken Unknown] hydrocodone-acetaminophen 1 tab PO Q6H PRN PRN 3 Days #10 tablet 12/18/20 [Rx Last Taken Unknown] Allergy/AdvReac Type Severity Reaction Status Date / Time No Known Allergies Allergy Verified 11/23/20 13:43 Family History Father Hypertension Diabetes Heart disease Mother Diabetes Hypertension Surgical History H/O section History of lumpectomy Social History Smoking Status: Never smoker alcohol intake: never substance use type: does not use caffeine: Yes Type: tea Number of servings: 6 ROS ROS ED Constitutional Constitutional ED: Denies chills or fever(s) Eyes Eyes: Denies blurry vision or change in vision ENT ENT ED: Reports rhinorrhea; Denies sore throat Cardiovascular Cardiovascular: Denies chest pain or palpitations Respiratory/Chest Respiratory/Chest: Reports cough; Denies dyspnea Gastrointestinal Gastrointestinal: Denies nausea or vomiting Genitourinary Genitourinary ED: Denies dysuria or hematuria Musculoskeletal Musculoskeletal: Reports back pain; Denies neck pain Integumentary Denies abscess or rash Neurologic Neurologic: Denies headache(s) or weakness Allergic/Immunologic Allergic/Immunologic ED: Denies mouth swelling or urticaria EXAM Physical Exam Const Vital Signs: 12/18/20 17:57 Temperature 97.6 F L Temperature Source Temporal Pulse Rate 89 Respiratory Rate 16 Blood Pressure 147/94 H Blood Pressure Mean 111 Pulse Ox 100 Oxygen Delivery Method Room Air Positive well nourished, well developed and obese General Appearance ED: well developed Nutritional Appearance: obese HEENT Reports moist mucous membranes Neck supple GI normal to inspection, nondistended, normoactive bowel sounds and soft to palpation Back/Spine Back/Spine Narrative: There is tenderness over the left lower lumbar paraspinal muscles. There is no bony crepitance or step-off. Range of motion was limited in all motions of the lumbar spine secondary to pain. Strength is 5/5 bilaterally in the lower extremities. There are no sensory deficits noted. Deep tendon reflexes are 1+/4 bilaterally in the Achilles and patellar reflexes. Pedal pulses are equal bilaterally. Lumbar Spine / Lower Back: ROM limited and straight leg raise negative bilaterally Neuro Deep Tendon Reflexes: Rt Patellar (L4): 1+, Lt Patellar (L4): 1+, Rt Ankle (S1): 1+ and Lt Ankle (S1): 1+ Deep Tendon Reflexes Back: Rt Patellar (L4): 1+, Lt Patellar (L4): 1+, Rt Ankle (S1): 1+ and Lt Ankle (S1): 1+ Psych mental status grossly normal MDM MDM MDM Narrative Medical decision making narrative: Patient was given an injection of Dilaudid here. Patient states her pain was improving but she still had some pain. Patient states she wants to go home. Patient was given prescriptions for [place] and Flexeril. Patient was instructed to get plenty of rest. Patient was instructed to use ice to the area. Patient was instructed to follow-up with her primary care physician in 3 to 5 days. Patient was instructed return if worse in any way. Patient understood and was agreeable with the plan. All questions were answered. Discharge Plan Triage Chief Complaint: Back ED Provider: Erwin Howell Dx/Rx/DC Orders Clinical Impression: Acute low back pain Instructions: ED Back and Neck Pain, General Prescriptions: New cyclobenzaprine [cyclobenzaprine] 10 MG tablet 10 mg PO TID PRN (Reason: Muscle Spasm) Qty: 20 RF: 0 hydrocodone-acetaminophen [hydrocodone-acetaminophen] 1 TABLET tablet 1 tab PO Q6H PRN PRN (Reason: Pain) 3 Days Qty: 10 RF: 0 Discontinued cyclobenzaprine 10 mg tablet 10 mg PO TID PRN (Reason: muscle spasm) Qty: 14 RF: 0 No Action valacyclovir 500 mg tablet 1 tab PO DAILY RF: 0 metformin 500 mg tablet extended release 24 hr 500 mg PO BID RF: 0 omeprazole 40 mg capsule,delayed release(DR/EC) 40 mg PO DAILY Qty: 30 RF: 11 amlodipine 10 mg tablet 10 mg PO DAILY Qty: 90 RF: 3 lisinopril 20 mg tablet 20 mg PO DAILY Qty: 90 RF: 3 metoprolol succinate 50 mg tablet extended release 24 hr 50 mg PO QDAY Qty: 90 RF: 3 Primary Care Provider: Senait Cherry Referrals: Senait Cherry DO [Primary Care Provider] - 3-5 Days Disposition Disposition: Home, Self Care Discharge Date/Time: 12/18/20 21:11
== END 2020-12-18 21:11 | disposition home or self-care (01) ==
PROVIDERS: Emergency Provider Emergency Medicine; PCP Family Medicine
DX: M54.50 Low back pain, unspecified (principal); E66.9 Obesity, unspecified; G47.33 Obstructive sleep apnea (adult) (pediatric); E11.9 Type 2 diabetes mellitus without complications; I10 Essential (primary) hypertension; Z79.84 Long term (current) use of oral hypoglycemic drugs; Z79.899 Other long term (current) drug therapy
CPT/HCPCS: 96372; 99282

== ENCOUNTER → 2020-12-25 | Outpatient (CLI) | payer MEDICAID, SELFPAY | END | disposition home or self-care (01) | PROVIDERS: PCP Family Medicine; Referring Provider Physician Assistant; Visit Provider Physician Assistant | DX: U07.1 COVID-19 (principal) | CPT/HCPCS: 87635; U0005; U0003 ==

== ENCOUNTER 2021-11-11 13:03 | Emergency (ER) | payer MEDICAID, SELFPAY ==
[2021-11-11 13:03] VITALS: BP 151/86; PULSE 83; RESP 14; TEMP 36.6; O2SAT 98; BMI 46.1
--- NOTE | 2021-11-11 14:39 | ED.VIS.LOWEX ---
HPI History of Present Illness Chief Complaint: Lower Extremity Injury Narrative Narrative: 41-year-old female with past medical history of chronic back pain and sciatica, diabetes, presents with 3 days of right thigh pain radiating down to her toes. She denies any fevers or chills. No loss of bowel or bladder. No saddle anesthesia. She had chronic problems with her back for which she states her doctor wanted to do shots but she could not because of her elevated blood sugars. She states that she has pain in her right hip and thigh radiating downward. She denies any trauma. She states she is had multiple x-rays and MRIs, even of her hip and that her hip pain was not from that joint but rather from her back. She presents because of the pain radiating down to her toes which is somewhat new for her. [facility] Medical History Back pain Diabetes Encounter for screening for COVID-19 Essential (primary) hypertension Intermittent palpitations Menorrhagia with irregular cycle GAUTAM (obstructive sleep apnea) Home Medications valacyclovir 500 mg tablet 1 tab PO DAILY 05/28/19 [History Last Taken Unknown] amlodipine 10 mg tablet 10 mg PO DAILY #90 tabs 11/22/20 [Rx Last Taken Unknown] lisinopril 20 mg tablet 20 mg PO DAILY #90 tabs 11/22/20 [Rx Last Taken Unknown] metformin 500 mg tablet,extended release 24 hr 500 mg PO BID 11/23/20 [History Last Taken Unknown] cyclobenzaprine 10 mg tablet 10 mg PO TID PRN Muscle Spasm #20 TABLETS 12/18/20 [Rx Last Taken Unknown] hydrocodone-acetaminophen 5-325mg 5mg-325mg 1 tab PO Q6H PRN PRN Pain 3 days #10 TABLETS 12/18/20 [Rx Last Taken Unknown] omeprazole 40 mg capsule,delayed release 40 mg PO DAILY #30 caps 01/26/21 [Rx Last Taken Unknown] amoxicillin 875 mg-potassium clavulanate 125 mg tablet 1 tab PO Q12H #14 tabs 05/26/21 [Rx Last Taken Unknown] fluticasone propionate 50 mcg/actuation nasal spray,suspension (Allergy Relief (fluticasone)) 1 spray intranasal DAILY #16 grams 05/26/21 [Rx Last Taken Unknown] metoprolol succinate 50 mg tablet,extended release 24 hr 50 mg PO QDAY #90 tabs 09/24/21 [Rx Last Taken Unknown] cyclobenzaprine 10 mg tablet 10 mg PO TID PRN muscle spasm #20 tabs 11/11/21 [Rx Last Taken Unknown] Allergy/AdvReac Type Severity Reaction Status Date / Time No Known Allergies Allergy Verified 11/11/21 13:06 Family History Father Hypertension Diabetes Heart disease Mother Diabetes Hypertension Surgical History H/O section History of lumpectomy Social History Smoking Status: Never smoker alcohol intake: never substance use type: does not use caffeine: Yes Type: tea Number of servings: 6 ROS ROS ED ROS Narrative Constitutional: No fever, no chills. HEENT: No sore throat. No neck pain. No loss of vision. No rhinorrhea. Cardiovascular: No chest pain. No palpitations. No pedal edema. Respiratory: No cough, no shortness of breath. Abdominal: No abdominal pain. No nausea. No vomiting. Genitourinary: No dysuria. No hematuria. Musculoskeletal: No myalgias. No arthralgias. Chronic back pain. Neurologic: No headaches. No dizziness. No lightheadedness. Right thigh pain radiating down towards toes. Skin: No rash. No change in color. Psychiatric: No depression. No anxiety. EXAM Physical Exam Narrative Exam Narrative: Afebrile. Vital signs noted. HEENT: Normocephalic. Atraumatic. PERRL, EOMI. Neck soft and supple. No point tenderness or step off. Cardiovascular: Regular rate and rhythm. No murmurs, rubs, or gallops appreciated. Respiratory: No tachypnea. Lungs clear to auscultation bilaterally. Gastrointestinal: Abdomen soft, nontender, with normoactive bowel sounds. No rebound or guarding. Neurological: Awake. Alert. Nonfocal, nonlateralizing. Straight leg raising negative bilaterally. DTRs equal and symmetric. EHL intact bilaterally. Ambulatory in ED and able to transfer to cot. Skin: No rash. Normal color. No pallor. Musculoskeletal: No pedal edema. Full range of motion extremities. Mild tenderness to palpation right sciatic notch. Const Vital Signs: 11/11/21 13:03 Temperature 97.9 F Temperature Source Temporal Pulse Rate 83 Respiratory Rate 14 Blood Pressure 151/86 H Blood Pressure Mean 107 Pulse Ox 98 Oxygen Delivery Method Room Air MDM MDM MDM Narrative Medical decision making narrative: I do feel that this is an acute exacerbation of her chronic back pain/lumbar radiculopathy/sciatica. There are no red flag warning signs. She states that when she comes to the emergency department she is usually written for muscle relaxers. She will continue Tylenol and ibuprofen [id number], and follow-up with her primary care physician. I feel she be discharged safely home. Return instructions were reviewed. Disposition is discharged home in stable condition. Discharge Plan Triage Chief Complaint: Lower Extremity Injury ED Provider: Shahriar Oswald Dx/Rx/DC Orders Clinical Impression: Back pain, Sciatica Instructions: ED Back Pain (Acute or Chronic), ED Sciatica Prescriptions: New cyclobenzaprine 10 mg tablet 10 mg PO TID PRN (Reason: muscle spasm) Qty: 20 0RF No Action valacyclovir 500 mg tablet 1 tab PO DAILY metformin 500 mg tablet extended release 24 hr 500 mg PO BID Label Comments: TAKE 1 TABLET BY MOUTH TWICE DAILY WITH FOOD fluticasone propionate [Allergy Relief (fluticasone)] 50 mcg/actuation spray,suspension 1 spray intranasal DAILY Qty: 16 0RF Rx Instructions: administer into each nostril amoxicillin-pot clavulanate 875-125 mg tablet 1 tab PO Q12H Qty: 14 0RF cyclobenzaprine [cyclobenzaprine] 10 MG tablet 10 mg PO TID PRN (Reason: Muscle Spasm) Qty: 20 0RF hydrocodone-acetaminophen [hydrocodone-acetaminophen] 1 TABLET tablet 1 tab PO Q6H PRN PRN (Reason: Pain) 3 Days Qty: 10 0RF amlodipine 10 mg tablet 10 mg PO DAILY Qty: 90 3RF lisinopril 20 mg tablet 20 mg PO DAILY Qty: 90 3RF omeprazole 40 mg capsule,delayed release(DR/EC) 40 mg PO DAILY Qty: 30 11RF metoprolol succinate 50 mg tablet extended release 24 hr 50 mg PO QDAY Qty: 90 3RF Stand Alone Forms: ED Work / School Excuse Primary Care Provider: Senait Cherry Referrals: Senait Cherry DO [Primary Care Provider] - As soon as possible Disposition Disposition: Home, Self Care
== END 2021-11-11 15:06 | disposition home or self-care (01) ==
LOC: ED 14:48
PROVIDERS: Emergency Provider Emergency Medicine; PCP Family Medicine; Visit Provider Emergency Medicine
DX: M54.9 Dorsalgia, unspecified (principal); M54.30 Sciatica, unspecified side; G89.29 Other chronic pain; G47.33 Obstructive sleep apnea (adult) (pediatric)
CPT/HCPCS: 99282

== ENCOUNTER 2022-01-22 09:00 | Outpatient (RCR) | payer MEDICAID, SELFPAY ==
--- NOTE | 2021-11-25 09:18 | HP.PTEVAL_ITS ---
Patient's Visit Information NAEL WHYTE is a 41 year old F referred to Physical Therapy by Dr. 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 Date of Evaluation: 11/25/21 Physical Therapist: Nancy Foss, PT, Cert MDT - Visit Plan Frequency: 2-3x /Week Duration: 4-6 Weeks Plan: START WITH VERY LIGHT EX AND START IN SITTING. DO NOT INCREASE BACK OR LE SX'S WITH EX/ACTIVITIES. POSTURE CORRECTION/STRENGTHENING, INSTRUCTION IN APPROPRIATE BODY MECHANICS AND ACTIVITY MODIFICATIONS. DLS STARTING WITH A NEUTRAL SPINE PROGRESSING ROM TOLERATED. GREGORY LE ROM, STRETCHING AND STRENGTHENING. HEP INSTRUCTION. 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 PATIENT STATES SHE IS ON LEAVE FROM WORK CURRENTLY FOR HER BACK PROBLEM. REPORTS SHE WENT ON LEAVE 11/06/21. TENTATIVE RTW DATE 12/10/21. PATIENT REPORTS HER WORK INVOLVES BENDING, LIFTING, TWISTING AND CLIMBING. Disability: NO. Present symptoms: GREGORY LOW BACK PAIN, CONSTANT GREGORY LE PAIN AND INTERMITTENT NUMBNESS ALL THE WAY TO THE FOOT RIGHT > LEFT. Present since: CHRONIC LBP. NEW RIGHT LE PAIN AND WEAKNESS INCREASED 11/08/21 FOR NO APPARENT REASON. PATIENT REPORTS THAT BY THAT EVENING SHE COULD BARELY WALK ON IT. Pain Scale: WORST 8/10, LEAST 2/10. Currently: 4/10. Commenced as a result of: NO APPARENT REASON. Symptoms at onset: RIGHT LE INCREASED PAIN AND WEAKNESS. Worse: WALKING, GROCERY SHOPPING, LIFTING, STANDING, LYING DOWN. Better: FREQUENT CHANGE OF POSITION, SITTING FOR SHORT PERIODS. Disturbed sleep: NO. Previous history/Previous treatment: LBP SINCE AGE 20. NO LUMBAR SX. NO LUMBAR DENNISE'S - CURRENTLY NOT A GOOD CANDIDATE DUE TO DIABETES AND NONE IN THE PAST. ONE AQUATIC PT VISIT WITH INCREASED PAIN AND DIFFICULTY AFTER THAT SO DID NOT RETURN. HAS SEEN SEVERAL CHIROPRACTORS OVER THE YEARS BUT NONE FOR ABOUT 3 YEARS - STATES SHE DOES NOT GET RELIEF FROM IT. CONSULT WITH DR. ARCHER LAST YEAR AND DISCUSSED DENNISE'S BUT NOT RECOMMENDED DUE TO DM PER PATIENT REPORT. Treatment this episode: ED VISIT. FOLLOW UP WITH DR. MIRELES AND LEAVE FROM WORK. NO PRESCRIPTION MEDICATIONS. Coughing/sneezing/straining: POSITIVE. Gait: TIME AND DISTANCE LIMITED. IS SLOWER. NO ASSISTIVE DEVICE USE. NO FALLS. Bowel or Bladder Dysfunction: NO. Accidents: NO. Unexplained weight loss: NO. Imaging: NONE RECENT. LUMBAR X-RAYS AND MRI OCT 2020 WITH MRI RESULTS BEING: MPRESSION: 1. Left L5-S1 disc herniation with lateral recess and foraminal stenosis. Neurosurgical consultation advised. 2. No moderate or high-grade thecal sac stenosis. PMH/Recent major surgery: HTN, REFLUX, SLEEP APNEA, CERVICAL SPONDYLOSIS, HEART PALPATATIONS SOMETIMES - CLEARED BY MARKETING OPERATIONS SPECIALIST PER PATIENT REPORT. ANXIETY, NIDDM. OTHER: PATIENT REPORTS SHE LOVES THE WATER BUT JUST FROM WALKING IN THE WATER AT THE [employer] POOL THIS SUMMER SHE HAD INCREASED LE PAIN AFTER. ALSO REPORTS INCREASED DIFFICULTY WALKING AFTER ONE AQUATIC THERAPY POOL SESSION IN THE PAST. PATIENT ALSO REPORTS THAT PRIOR TO SEEING DR. MIRELES JUST HER RIGHT LEG WAS HURTING BUT SHE HAD HER LAY ON HER BACK AND LIFT HER LEG AND THEN HER L LE STARTED HURTING AND HAS HURT EVER SINCE. PATIENT REPORTS SHE ALWAYS HAS PAIN BUT SOMETIMES THE LITTLIST THING CAN FLARE HER UP. PATIENT REPORTS SHE WANTS TO TRY AT LEAST A FEW PHYSICAL THERAPY SESSIONS TO SEE IF SHE CAN GO BACK TO WORK. PATIENT STATES SHE MISSES WORK. - Objective Sitting/Standing Posture: POOR. L SHLD LEVEL LOWER THAN RIGHT. GREGORY ILIAC CRESTS GROSSLY SYMMETRICAL IN STANDING. SLOUCHED IN SITTING AND IN STANDING. Lordosis: NORMAL. Active Correction of posture: WORSE. Other Observations: THIS PATIENT AMBULATES INDEP'LY INTO PT WITHOUT ANY ASSISTIVE DEVICES WITH SLOW CADANCE, SHORT GREGORY STRIDE LENGTH AND NO LOB. SHE IS ABLE TO INDEP'LY TRANSFER FROM SIT TO STAND WITHOUT UE ASSIST. THIS PT PROCEEDED CAREFULLY WITH ALL TESTING DUE TO PATIENT REPORTING HOW EASILY SX'S CAN BE INCREASED. Sensory deficit: GREGORY LE LIGHT TOUCH SENSATION GROSSLY INTACT AND SYMMETRICAL. ROM deficit: PATIENT APPEARS TO HAVE TIGHT HIP FLEXORS, HS'S AND GASTROC SOLEUS COMPLEX'S BUT DIFFICULT TO TEST DUE TO PATIENT COMPLAINTS OF PAIN WITH MOVEMENT. Motor deficit: AGAIN, DIFFICULT TO TEST DUE TO PATIENT COMPLAINTS OF PAIN WITH MOVEMENT BUT RIGHT LE AT LEAST: HIP FLEX 3/5, KNEE EXT 3-/5, KNEE FLEX 3-/5 ANKLE DORSIFLEX 2/5. LLE AT LEAST: HIP FLEX 3+/5, KNEE EXT 3+/5, KNEE FLEX 4- /5, ANKLE DORSI 4-/5. Reflexes: UNABLE TO ELICIT GREGORY LE DTR'S. Dural Signs: POSITIVE GREGORY LE'S. Lumbar mvmt loss: flex - TOM. ext - TOM. R SG - TOM. L SG - TOM. PATIENT C/O INCREASED GREGORY LE PAIN STANDING FOR TESTING AND INCREASED GREGORY LB AND LE PAIN WITH LUMBAR ROM TESTING ALL PLANES. Core strength: POOR. OTHER: PATIENT IS ABLE TO SLS ON EA LE WITH ONE UE ASSIST AND SWING THE OPPOSITE LEG THROUGH A SMALL ROM X APPROX 2 SEC. - Balance/Special Test Scores Oswestry Low Back Score: 23 - Goals Goal 1:: DECREASE C/O LOW BACK AND GREGORY LE SX'S. Goal Time Frame: 4-6 Weeks Goal 2:: IMPROVE PERSONAL CARE, LIFTING, WALKING, SITTING, STANDING, SOCIAL LIFE, TRAVEL AND WORK/HOMEMAKING FUNCTION. Goal Time Frame: 4-6 Weeks Goal 3:: INSTRUCT IN PROPHYLAXIS Goal Time Frame: 4-6 Weeks - Anticipated Interventions Patient/Client Instruction: Educate patient on: Condition, Plan of Care, Risk Factors For the Purpose of:: To improve self management Therapeutic Exercise to Include: Strength training, Body mechanics, Postural training, Flexibilty training, Gait and locomotor training, Neuromotor development, Dynamic Lumbar Stabilization Comment: NO AQUATIC THERAPY For the Purpose of:: To decrease pain, To increase ROM, To improve muscle performance and motor function, To increase tolerance to activity/condition/position, To improve ability of physical actions for home/community/work/leisure, To improve gait and locomotor functions Thank you for the opportunity to evaluate your patient. For Medicare and Medicare HMO plans, please review the plan of care and approve it. It will need to be FAXED BACK to us at [phone] for Medicare purposes. For Medicare only, by signing this I certify the plan of care. Please let me know if there are questions or concerns regarding this plan of care. Physician Signature: Date:
--- NOTE | 2022-01-22 09:58 | HP.PTDCSUM ---
It has been my pleasure to treat NAEL WHYTE referred by Dr. Senait Cherry DO, with the diagnosis of LUMBAR RADIC R>L, FORAMINAL STENOSIS L5-S1 for a total of 8 visit(s). Discharge Date: Please see the following information for a summary of their discharge status. Subjective: PATIENT REPORTS SHE IS GLAD SHE TRIED PT AND SHE LEARNED SOME THINGS TO HELP A LITTLE BIT TEMPORARILY (SKTC) BUT SHE ISN'T BETTER OVER-ALL. PATIENT REPORTS INCREASED PAIN WITH THE LAND EX'S BUT OVER-ALL NO BETTER AND NO WORSE. FOLLOW UP PENDING WITH DR. CHERRY 02/03/22. SHE REPORTS SHE HAS NOT BEEN ABLE TO RETURN TO WORK DUE TO PHYSICIAN WORK RESTRICTIONS. SHE REPORTS SHE IS READY TO GO BACK TO WORK BUT SHE ISN'T SURE HER BODY IS. STATES SHE FEELS LIKE SHE IS JUST GOING TO NEED TO LIVE WITH THE PAIN. PATIENT REPORTS DR. CHERRY IS AWARE OF HER FOOT SYMPTOMS AND REFERRED HER TO A PHARMACIST APPRENTICE BUT SHE HAS NOT BEEN ABLE TO SEE ONE YET. Left leg Pain Intensity (Out of 10): 3 Left LB Pain Intensity (Out of 10): 3 % Improvement: 0 Objective/Function: PATIENT WAS SEEN TODAY FOR RE-ASSESSMENT OF PROGRESS TOWARD THE SET PT GOALS AND THE NEED FOR FURTHER PHYSICAL THERAPY VS READINESS FOR DISCHARGE. UPON EXAM TODAY THERE ARE NO SIGNIFICANT CHANGES SINCE INITIAL EVAL. SHE IS APPROPRIATE FOR PHYSICIAN FOLLOW UP AND HAS FOLLOW UP PENDING. Goal 1:: DECREASE C/O LOW BACK AND GREGORY LE SX'S. Goal Progress: Not Progressing Goal 2:: IMPROVE PERSONAL CARE, LIFTING, WALKING, SITTING, STANDING, SOCIAL LIFE, TRAVEL AND WORK/HOMEMAKING FUNCTION. Goal Progress: Not Progressing Goal 3:: INSTRUCT IN PROPHYLAXIS Goal Progress: Not Progressing Plan: D/C TO PHYSICIAN RE-ASSESSMENT. PATIENT AGREEABLE. If there are questions or concerns regarding this patient's physical therapy, please feel free to call me at [phone]. Thank you for the referral of this patient. Sincerely, Nancy Foss, PT, Cert MDT Balance/Gait/Functional tests - Balance/Special Test Scores Oswestry Low Back Score: 21
== END 2022-01-22 10:24 | disposition home or self-care (01) ==
LOC: PT 09:00
PROVIDERS: PCP Family Medicine; Referring Provider Family Medicine; Visit Provider Family Medicine
DX: M54.16 Radiculopathy, lumbar region (principal); M54.17 Radiculopathy, lumbosacral region
CPT/HCPCS: 97110; 97162; 97164

== ENCOUNTER 2022-03-28 13:38 | Emergency (ER) | payer MEDICAID, SELFPAY ==
[2022-03-28 13:38] VITALS: BP 141/78; PULSE 78; RESP 18; TEMP 36; O2SAT 98; BMI 49.8
--- NOTE | 2022-03-28 14:05 | RAD_ITS ---
INDICATION: pain EXAMINATION/TECHNIQUE: X-RAY - LEFT XR Wrist Min 3 Views 3 VIEWS COMPARISON: None. FINDINGS: SOFT TISSUES: No soft tissue swelling or gas. No radiopaque foreign body. BONES/JOINTS: No acute fracture or subluxation.. Normal alignment. Preservation of the joint space.. No sclerotic or destructive changes observed. RAD/Wrist min 3 Views IMPRESSION: Within normal limits examination. Electronically Signed: Criss Wilson MD at 14:15 EST ,
--- NOTE | 2022-03-28 15:26 | EX.ED.UPPERE ---
HPI History of Present Illness Chief Complaint: Upper Extremity Injury Informant: patient Narrative Narrative: Patient states that her left wrist has been hurting for about 2 weeks. She states she woke up 1 morning and it was sore. 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 But it is just not going away. Most of the pain is in the dorsal aspect of the left wrist. No swelling. No fevers or chills. No recent infections, skin infections, dental infections. No numbness or tingling distally. She denies history of prior trauma or injury that she knows of. There is no prior fracture. It is better when at rest that is worse when she moves it more. Patient does have history of diabetes. Although this could subtly increased her risk of infectious complications she is not having any symptoms specifically related to infection. [facility] Medical History Back pain Diabetes Encounter for screening for COVID-19 Essential (primary) hypertension Intermittent palpitations Menorrhagia with irregular cycle GAUTAM (obstructive sleep apnea) Home Medications valacyclovir 500 mg tablet 1 tab PO DAILY 05/28/19 [History Last Taken Unknown] lisinopril 20 mg tablet 20 mg PO DAILY #90 tabs 11/22/20 [Rx Last Taken Unknown] metformin 500 mg tablet,extended release 24 hr 500 mg PO BID 11/23/20 [History Last Taken Unknown] cyclobenzaprine 10 mg tablet 10 mg PO TID PRN Muscle Spasm #20 TABLETS 12/18/20 [Rx Last Taken Unknown] hydrocodone-acetaminophen 5-325mg 5mg-325mg 1 tab PO Q6H PRN PRN Pain 3 days #10 TABLETS 12/18/20 [Rx Last Taken Unknown] omeprazole 40 mg capsule,delayed release 40 mg PO DAILY #30 caps 01/26/21 [Rx Last Taken Unknown] amoxicillin 875 mg-potassium clavulanate 125 mg tablet 1 tab PO Q12H #14 tabs 05/26/21 [Rx Last Taken Unknown] fluticasone propionate 50 mcg/actuation nasal spray,suspension (Allergy Relief (fluticasone)) 1 spray intranasal DAILY #16 grams 05/26/21 [Rx Last Taken Unknown] metoprolol succinate 50 mg tablet,extended release 24 hr 50 mg PO QDAY #90 tabs 09/24/21 [Rx Last Taken Unknown] cyclobenzaprine 10 mg tablet 10 mg PO TID PRN muscle spasm #20 tabs 11/11/21 [Rx Last Taken Unknown] amlodipine 10 mg tablet 10 mg PO DAILY #90 tabs 11/19/21 [Rx Last Taken Unknown] naproxen 500 mg tablet 500 mg PO BID #14 tabs 03/28/22 [Rx Last Taken Unknown] Allergy/AdvReac Type Severity Reaction Status Date / Time No Known Allergies Allergy Verified 03/28/22 13:40 Family History Father Hypertension Diabetes Heart disease Mother Diabetes Hypertension Surgical History H/O section History of lumpectomy Social History Smoking Status: Never smoker alcohol intake: never substance use type: does not use caffeine: Yes Type: tea Number of servings: 6 ROS ROS ED Constitutional Constitutional ED: Denies chills or fever(s) ENT ENT ED: Denies sore throat Cardiovascular Cardiovascular: Denies chest pain or palpitations Respiratory/Chest Respiratory/Chest: Denies cough or dyspnea Gastrointestinal Gastrointestinal: Denies nausea or vomiting Genitourinary Genitourinary ED: Denies dysuria Musculoskeletal Musculoskeletal: Reports other Details: Left wrist pain as in history of present illness. Integumentary Denies abscess, Abrasions or rash Neurologic Neurologic: Denies paresthesias or weakness Endocrine Endocrinology: Denies polydipsia or polyuria Hematologic/Lymphatic Hematologic/Lymphatic: Denies easy bleeding or lymphadenopathy Allergic/Immunologic Allergic/Immunologic ED: Denies urticaria EXAM Physical Exam Const Vital Signs: 03/28/22 13:38 Temperature 96.8 F L Temperature Source Temporal Pulse Rate 78 Respiratory Rate 18 Blood Pressure 141/78 H Blood Pressure Mean 99 Pulse Ox 98 Oxygen Delivery Method Room Air Positive well nourished and well developed General Appearance ED: well developed and NAD HEENT atraumatic Eyes Eyes Narrative: No pallor. Resp normal respiratory effort Extremity Extremity Narrative: There is no erythema warmth. No notable swelling. There is some discomfort with motion mostly when she extends the wrist. No snuffbox tenderness. Byron's and reverse Byron's as well as capillary refill are normal. Negative Tinel's and Phalen's test. No rashes. Neuro no focal motor deficits and no sensory deficits noted Sensorium / Orientation: alert Psych mental status grossly normal Skin Lesions: no lesions Rashes: no rashes MDM MDM MDM Narrative Medical decision making narrative: My independent interpretation of the patient's three-view x-ray of the left wrist show no sign of acute fracture. I see no dislocation. I see no foreign body or gas in the tissue. Radiology final reading is also within normal limits. I am wondering if this patient may have strained or slipped on her wrist wrong since she woke up with the soreness. I see no indication of infectious etiology. I do not think CBC, ESR, CRP is necessary. She has controlled diabetes without polyuria polydipsia and I do not think a BMP will change her management. I am wondering if this may represent some mild irritation of triangular fibrocartilage or just more of a strain its not improving due to frequent use. We will write for nonsteroidals. However, I think a splint will provide her the most benefit. We discussed wearing this including at night. She can take it off for icing and resting. She can follow-up with orthopedics if its not improving over the next week. She can also see her primary physician. If she develops redness, fevers, swelling, numbness or other can discern she should return. Plan will be splinting and prescription drug management Radiography Diagnostic Testing: Clinical Impression(s) from Imaging Studies Wrist X-Ray 03/28/22 14:05 IMPRESSION: Within normal limits examination. Electronically Signed: Criss Wilson MD at 14:15 EST , See above. Procedures Upper Extremity Splints Upper Extremity Splint: Volar Splint Fabrication: Pre-fabricated Location: Left Discharge Plan Triage Chief Complaint: Upper Extremity Injury ED Provider: Costa Saez Dx/Rx/DC Orders Clinical Impression: Sprain and strain of left wrist Prescriptions: New naproxen 500 mg tablet 500 mg PO BID Qty: 14 0RF No Action valacyclovir 500 mg tablet 1 tab PO DAILY metformin 500 mg tablet extended release 24 hr 500 mg PO BID Label Comments: TAKE 1 TABLET BY MOUTH TWICE DAILY WITH FOOD fluticasone propionate [Allergy Relief (fluticasone)] 50 mcg/actuation spray,suspension 1 spray intranasal DAILY Qty: 16 0RF Rx Instructions: administer into each nostril amoxicillin-pot clavulanate 875-125 mg tablet 1 tab PO Q12H Qty: 14 0RF cyclobenzaprine [cyclobenzaprine] 10 MG tablet 10 mg PO TID PRN (Reason: Muscle Spasm) Qty: 20 0RF hydrocodone-acetaminophen [hydrocodone-acetaminophen] 1 TABLET tablet 1 tab PO Q6H PRN PRN (Reason: Pain) 3 Days Qty: 10 0RF cyclobenzaprine 10 mg tablet 10 mg PO TID PRN (Reason: muscle spasm) Qty: 20 0RF lisinopril 20 mg tablet 20 mg PO DAILY Qty: 90 3RF omeprazole 40 mg capsule,delayed release(DR/EC) 40 mg PO DAILY Qty: 30 11RF metoprolol succinate 50 mg tablet extended release 24 hr 50 mg PO QDAY Qty: 90 3RF amlodipine 10 mg tablet 10 mg PO DAILY Qty: 90 3RF Primary Care Provider: Senait Cherry Referrals: Senait Cherry DO [Primary Care Provider] - 1 Week if not improving Disposition Disposition: Home, Self Care
== END 2022-03-28 15:51 | disposition home or self-care (01) ==
LOC: ED 15:48
PROVIDERS: Emergency Provider Emergency Medicine; PCP Family Medicine; Visit Provider Emergency Medicine
DX: S63.92XA Sprain of unspecified part of left wrist and hand, initial encounter (principal); G47.33 Obstructive sleep apnea (adult) (pediatric); X58.XXXA Exposure to other specified factors, initial encounter
CPT/HCPCS: 73110; 99283

== ENCOUNTER → 2022-04-09 | Outpatient (CLI) | payer MEDICAID, SELFPAY | END | disposition home or self-care (01) | PROVIDERS: PCP Family Medicine; Visit Provider Student in an Organized Health Care Education/Training Program | DX: Z11.3 Encounter for screening for infections with a predominantly sexual mode of transmission (principal) | CPT/HCPCS: 87255 ==

== ENCOUNTER 2022-07-01 16:40 | Emergency (ER) | payer MEDICAID, SELFPAY ==
[2022-07-01 16:41] VITALS: BP 140/76; PULSE 81; RESP 18; TEMP 36.2; O2SAT 97; BMI 49.4
--- NOTE | 2022-07-01 18:08 | EX.ED.DYSGE1 ---
HPI History of Present Illness Chief Complaint: Wound Check Informant: patient Narrative Narrative: Patient complains about 5 days she has had a sore on her abdomen. This seems to be worsening not getting better. She is not having systemic symptoms such as nausea vomiting fevers or chills. She does not feel sick. Not having polyuria polydipsia. She has had these before. Sometimes she has used antibiotics. She has had MRSA in the past. [facility] Medical History Back pain Diabetes Encounter for screening for COVID-19 Essential (primary) hypertension Intermittent palpitations Menorrhagia with irregular cycle GAUTAM (obstructive sleep apnea) Home Medications lisinopril 20 mg tablet 20 mg PO DAILY #90 tabs 11/22/20 [Rx Last Taken Unknown] metformin 500 mg tablet,extended release 24 hr 500 mg PO Q6H 11/23/20 [History Last Taken Unknown] metoprolol succinate 50 mg tablet,extended release 24 hr 50 mg PO QDAY #90 tabs 09/24/21 [Rx Last Taken Unknown] amlodipine 10 mg tablet 10 mg PO DAILY #90 tabs 11/19/21 [Rx Last Taken Unknown] cephalexin 500 mg capsule 500 mg PO Q6 #40 CAPSULES 07/01/22 [Rx Last Taken Unknown] omeprazole 40 mg capsule,delayed release 40 mg PO BID 07/01/22 [History Last Taken Unknown] sulfamethoxazole 800 mg-trimethoprim 160 mg tablet 1 tab PO BID #20 TABLETS 07/01/22 [Rx Last Taken Unknown] Allergy/AdvReac Type Severity Reaction Status Date / Time No Known Allergies Allergy Verified 07/01/22 16:42 Family History Father Hypertension Diabetes Heart disease Mother Diabetes Hypertension Surgical History H/O section History of lumpectomy Social History Smoking Status: Never smoker alcohol intake: never substance use type: does not use caffeine: Yes Type: tea Number of servings: 6 ROS ROS ED Constitutional Constitutional ED: Denies chills, fever(s) or subjective ENT ENT ED: Denies sore throat Cardiovascular Cardiovascular: Denies chest pain or palpitations Respiratory/Chest Respiratory/Chest: Denies cough Gastrointestinal Gastrointestinal: Reports other Details: She has a sore on her right lower abdomen skin fold but no abdominal pain ; Denies abdominal pain, diarrhea, nausea or vomiting Genitourinary Genitourinary ED: Denies hematuria Musculoskeletal Musculoskeletal: Denies myalgias Integumentary Reports rash Neurologic Neurologic: Denies weakness Hematologic/Lymphatic Hematologic/Lymphatic: Denies easy bleeding or easy bruising Allergic/Immunologic Allergic/Immunologic ED: Denies urticaria EXAM Physical Exam Narrative Exam Narrative: Patient awake alert nontoxic sitting comfortably in bed. HEENT shows moist mucous membranes. No thrush Cardiorespiratory lungs are clear. Heart is regular. Abdomen is obese but overall nontender. When lift up the skin folds on the right lower abdomen there is a slight open area. It is about 1 x 4 cm in length. There is some erythema around it. But no edema. There is no swelling. No abscess. But I am concerned this is starting with some localized cellulitis. Its not notably tender. Neurologically she is awake alert and appropriate Const Vital Signs: 07/01/22 16:41 Temperature 97.2 F L Temperature Source Temporal Pulse Rate 81 Respiratory Rate 18 Blood Pressure 140/76 H Blood Pressure Mean 97 Pulse Ox 97 Oxygen Delivery Method Room Air MDM MDM MDM Narrative Medical decision making narrative: With patient being diabetic, this increasing, surrounding erythema and history of MRSA I will start antibiotics. We discussed cleaning the area and keeping it dry with a heavy towel in between skin folds to allow aeration. We discussed reasons to return. Discharge Plan Triage Chief Complaint: Wound Check ED Provider: Costa Saez Dx/Rx/DC Orders Clinical Impression: Open wound of abdominal wall, Cellulitis of right abdominal wall Instructions: ED Cellulitis Prescriptions: New sulfamethoxazole-trimethoprim [sulfamethoxazole-trimethoprim] 800-160 mg tablet 1 tab PO BID Qty: 20 0RF cephalexin [cephalexin] 500 mg capsule 500 mg PO Q6 Qty: 40 0RF No Action metformin 500 mg tablet extended release 24 hr 500 mg PO Q6H omeprazole 40 mg capsule,delayed release(DR/EC) 40 mg PO BID lisinopril 20 mg tablet 20 mg PO DAILY Qty: 90 3RF metoprolol succinate 50 mg tablet extended release 24 hr 50 mg PO QDAY Qty: 90 3RF amlodipine 10 mg tablet 10 mg PO DAILY Qty: 90 3RF Primary Care Provider: Senait Cherry Referrals: Senait Cherry DO [Primary Care Provider] - 3-5 Days Disposition Disposition: Home, Self Care
== END 2022-07-01 18:24 | disposition home or self-care (01) ==
PROVIDERS: Emergency Provider Emergency Medicine; PCP Family Medicine; Visit Provider Emergency Medicine
DX: S31.103A Unspecified open wound of abdominal wall, right lower quadrant without penetration into peritoneal cavity, initial encounter (principal); E11.9 Type 2 diabetes mellitus without complications; X58.XXXA Exposure to other specified factors, initial encounter; L03.311 Cellulitis of abdominal wall; I10 Essential (primary) hypertension; Z79.84 Long term (current) use of oral hypoglycemic drugs; Z79.899 Other long term (current) drug therapy; Z86.14 Personal history of Methicillin resistant Staphylococcus aureus infection
CPT/HCPCS: 99282

== ENCOUNTER → 2022-07-28 | Outpatient (CLI) | payer MEDICAID, SELFPAY ==
--- NOTE | 2022-07-28 13:01 | BI_ITS ---
MAMMOGRAPHY - BILATERAL SCREENING REASON FOR EXAM: Female, 42 years old. Routine annual screening examination. PERTINENT HISTORY: Non-contributory. Remote left excisional breast biopsy. TECHNIQUE: Digital bilateral breast carmine (3D mammographic acquisition) in the CC and MLO projections. 2-D mediolateral oblique (MLO) and craniocaudad (CC) views of both breasts were obtained. CAD: Full Field Digital Mammography with Computer Added Detection was performed. COMPARISON: Comparison is made with prior study dated September 06, 2020 and April 19, 2019. FINDINGS: Breast Composition: The breasts are almost entirely fatty. There are no dominant masses or suspicious calcifications. Stable small benign-appearing bilateral axillary lymph nodes. No other significant abnormalities are identified. There has been no significant change since the prior study. BI/SCRN MAMM (CAD)W/CARMINE BILAT IMPRESSION: Stable bilateral screening mammogram. Yearly follow-up mammogram recommended. (A) ASSESSMENT CATEGORY: BIRADS Category 2: Benign. A letter regarding these results will be sent to the patient by the facility within 30 days. Approximately 10% of breast cancers are not detected by mammography. A normal mammogram should not delay biopsy of a clinically suspicious abnormality. [id number] Electronically Signed: Fabian Toledo MD at 14:28 EDT ,
== END | disposition home or self-care (01) ==
LOC: OPBI 12:59
PROVIDERS: PCP Family Medicine; Referring Provider Student in an Organized Health Care Education/Training Program; Visit Provider Student in an Organized Health Care Education/Training Program
DX: Z12.31 Encounter for screening mammogram for malignant neoplasm of breast (principal)
CPT/HCPCS: 77063; 77067

== ENCOUNTER → 2022-09-26 | Outpatient (CLI) | payer MEDICAID, SELFPAY ==
--- NOTE | 2022-09-26 12:39 | MRI_ITS ---
EXAM: MR LUMBAR SPINE WITHOUT INTRAVENOUS CONTRAST CLINICAL INDICATION: LUMBAR RADICULOPATHY, LOWER BACK PAIN TECHNIQUE: Multiplanar and multisequence MR images of the lumbar spine without intravenous contrast. Magnetic field strength 1.5 T. COMPARISON: 11/03/2020. FINDINGS: VERTEBRAE: Normal alignment. No destructive lesions. SPINAL CORD: Unremarkable. Normal position and signal intensity of the conus medullaris. SOFT TISSUES: Unremarkable. DISCS/SPINAL CANAL/NEURAL FORAMINA: L1-L2: Unremarkable. Normal disc height and morphology. Normal spinal canal and lateral recesses. Normal neuroforamina. L2-L3: Unremarkable. Normal disc height and morphology. Normal spinal canal and lateral recesses. Normal neuroforamina. L3-L4: Moderate disc space narrowing and loss of disc signal. No spinal canal or foraminal stenosis. Mild bilateral facet arthropathy. L4-L5: Moderate disc space narrowing and loss of disc signal. Mild generalized disc bulge. No spinal canal or foraminal stenosis. Mild bilateral facet arthropathy. L5-S1: Modic type II endplate changes similar to the prior exam. Mild left lateral recess and left foraminal disc protrusion that is decreased compared with the previous exam. There may be minimal impingement upon the left L5 nerve root in the neural foramen and the left L4 nerve root in the lateral recess. MRI/Spine Lumbar (Routine) IMPRESSION: 1. Mild left lateral recess and left neural foraminal disc protrusion decreased compared to the prior exam. There may be mild impingement upon the left L5 nerve root in the left neural foramen and the left L4 nerve root in the left lateral recess but this appears decreased compared with prior exam. 2. Moderate degenerative disc disease L3-L4 and L5-S1 without spinal canal or foraminal stenosis. Electronically Signed: Huey Lopez MD at 2:17 EDT ,
== END | disposition home or self-care (01) ==
LOC: MRI 12:33
PROVIDERS: PCP Family Medicine; Referring Provider Family Medicine; Visit Provider Family Medicine
DX: M47.27 Other spondylosis with radiculopathy, lumbosacral region (principal)
CPT/HCPCS: 72148

== ENCOUNTER → 2022-11-05 | Outpatient (CLI) | payer MEDICAID, SELFPAY ==
--- NOTE | 2022-11-05 11:25 | RAD_ITS ---
STUDY: X-RAY - LEFT SHOULDER REASON FOR EXAM: Female, 42 years old. Pain. TECHNIQUE: 4 view(s) of the shoulder. COMPARISON: None. FINDINGS: Normal glenohumeral articulation. Mild arthrosis of the AC joint. Normal acromion. Normal humeral head and visualized proximal humerus. Normal soft tissues. Normal visualized pulmonary apex. RAD/Shoulder min 2 Views IMPRESSION: Mild arthrosis of the AC joint. No other abnormality. Electronically Signed: Gui Jennings MD at 14:16 EDT ,
--- NOTE | 2022-11-05 11:30 | RAD_ITS ---
STUDY: X-RAY - RIGHT SHOULDER REASON FOR EXAM: Female, 42 years old. Shoulder pain, right greater than left. TECHNIQUE: 4 view(s) of the shoulder. COMPARISON: None. FINDINGS: Normal glenohumeral articulation. Normal acromioclavicular joint. Normal acromion. Normal humeral head and visualized proximal humerus. Normal soft tissues. Normal visualized pulmonary apex. RAD/Shoulder min 2 Views IMPRESSION: Normal x-ray examination of the shoulder. Electronically Signed: Gui Jennings MD at 14:17 EDT ,
== END | disposition home or self-care (01) ==
LOC: MTRAD 11:24
PROVIDERS: PCP Family Medicine; Referring Provider Family Medicine; Visit Provider Family Medicine
DX: M25.511 Pain in right shoulder (principal); M25.512 Pain in left shoulder
CPT/HCPCS: 73030

== ENCOUNTER 2023-08-03 09:00 | Day surgery (SDC) | payer MEDICAID, SELFPAY ==
[2023-08-03 09:33] VITALS: BP 151/86; PULSE 94; RESP 16; TEMP 36.4; O2SAT 99; BMI 51.2
[2023-08-03] MEDS: Lactated Ringers 1,000 ML 15 ML IV (10:05)
--- NOTE | 2023-08-03 10:29 | RAD_ITS ---
EXAM: FL Fluoro (separate procedure), up to 1 hour HISTORY: CAUDAL EPIDURAL STEROID INJECTION COMPARISON: None Technique: Fluoroscopy provided for epidural steroid injection. 1 cm image obtained, 9.3 seconds of fluoroscopy, dose of 12.09 mGy FINDINGS: No intraoperative complications noted during epidural steroid injection performed by Dr. Castillo RAD/Fluor Guidance for Spine Inj IMPRESSION: No complications noted during fluoroscopy for epidural steroid injection Electronically Signed: Troy Sarah MD at 15:02 EDT ,
[2023-08-03] MEDS: 0.9% Normal Saline (Pres. free 10 ML Vial (10:35)
[2023-08-03] MEDS: Lidocaine 1% (5 ml sdv) 5 ML Vial (10:35)
[2023-08-03] MEDS: MethylPREDNISolone Acetate 80 MG/ML Vial (10:35)
--- NOTE | 2023-08-03 10:37 | OP.PCM_ITS ---
Report of Operation Date of Procedure: 08/03/23 Pre-Operative Diagnosis: Lumbosacral radiculopathy, lumbosacral degenerative di sc disease, lumbosacral spinal stenosis Post-Operative Diagnosis: Lumbosacral radiculopathy, lumbosacral degenerative disc disease, lumbosacral spinal stenosis Surgery/Procedure Performed:: Diagnostic/therapeutic caudal epidural steroid injection under fluoroscopic guidance Type of Anesthesia: IV Sedation Estimated Blood Loss (mL): Minimal Description of Procedure: DESCRIPTION OF PROCEDURE: History and physical of today was reviewed. Risks and benefits of the procedure were explained. The patient understood and agreed to proceed. Informed consent was obtained. IV inserted per routine protocol. The patient was taken to the operating room and placed in the prone position with a pillow positioned underneath the abdomen. The lower back and tailbone area was prepped and draped in a sterile fashion using iodine x3. Under fluoroscopy guidance on a lateral view, the caudal space was identified. The skin and subcutaneous tissue was anesthetized with approximately 3 mL of 1% lidocaine using a 25-gauge regular needle. Under direct visualization with fluoroscopy, using a 22-gauge 3-1/2-inch spinal needle, the needle was advanced via the skin through the sacral hiatus. The tip of the needle was passed throug h the sacrococcygeal ligament and advanced to approximately S4 area. After negative aspiration of blood or CSF, a total of 3 mL of contrast was injected to confirm correct placement of the needle as well as cephalad spread. The spread was followed to approximately L5 area. After confirmation on AP as well as lateral view and repeated negative aspiration, a total of 15 mL of preservative- free 0.125% Marcaine with 80 mg of Depo-Medrol was injected easily. The needle was then removed intact. The patient experienced no sign or symptoms of intrathecal or intravascular injection. The patient experienced no paresthesia. The procedure was completed without any apparent difficulty or any complications. The patient appeared to tolerate it well. ASSESSMENT AND PLAN: This is a 43-year-old female with lumbosacral radiculopathy, lumbosacral degenerative disc disease, lumbosacral spinal stenosis status post diagnostic/therapeutic caudal epidural steroid injection, patient will continue her current medications, patient will follow in approximately 2 weeks for reevaluation. Complications None
[2023-08-03 10:46] LABS: Bedside Glucose 143 mg/dL (74-106)
[2023-08-03 10:58] VITALS: BP 117/73; BP 151/86; PULSE 72; RESP 16; TEMP 36.4; O2SAT 97
== END 2023-08-03 11:20 | disposition home or self-care (01) ==
LOC: SDC 09:01 → AC 09:04
PROVIDERS: PCP Family Medicine; Referring Provider Anesthesiology Pain Medicine; Visit Provider Anesthesiology Pain Medicine
PROC: 3E0S3BZ Introduction of Anesthetic Agent into Epidural Space, Percutaneous Approach (ICD-10-PCS; CPT 62282; principal; 2023-08-03 10:45)
DX: M51.17 Intervertebral disc disorders with radiculopathy, lumbosacral region (principal); M48.07 Spinal stenosis, lumbosacral region; Z79.899 Other long term (current) drug therapy; Z79.84 Long term (current) use of oral hypoglycemic drugs
CPT/HCPCS: 62323; 01992; 64483; 77003; 82962; J7120; J2405; J3490

== ENCOUNTER 2023-08-19 09:45 | Emergency (ER) | payer MEDICAID, SELFPAY ==
[2023-08-19 09:47] VITALS: BP 133/104; PULSE 82; RESP 18; TEMP 36.4; O2SAT 98
[2023-08-19] MEDS: Naproxen 500 MG Tablet PO (10:16)
[2023-08-19] MEDS: HYDROcodone Bitartrate/Apap 5/325 Tablet PO (10:16)
[2023-08-19] MEDS: predniSONE 20 MG Tablet 60 MG PO (10:16)
[2023-08-19] MEDS: Lidocaine 5% Patch 1 PATCH TOPICAL (10:16)
--- NOTE | 2023-08-19 10:18 | EDS_ITS ---
HPI History of Present Illness Chief Complaint: Back Informant: patient Narrative Narrative: Patient present secondary to acute on chronic low back pain. She has a history of chronic back pain and follows with Dr. Castillo for pain management. She states she had injections performed a couple weeks ago. She has not noted significant improvement. She presents today secondary to worsened pain with pain down her right leg. She states that she has had radiation to her leg previously. There has been no new injury or fall. [facility] Medical History CPAP (continuous positive airway pressure) dependence Wears glasses Anxiety Marijuana use Diabetes Arthritis Anemia Hepatitis Easy bruising Back pain Migraine headache Dietary restriction Gastric reflux Non-smoker Shortness of breath on exertion Leg cramps History of pain when walking History of echocardiogram Cardiology follow-up encounter History of irregular heartbeat Encounter for screening for COVID-19 Intermittent palpitations Essential (primary) hypertension Back pain Menorrhagia with irregular cycle Home Medications ?Medication ?Instructions ?Recorded ?Last Taken ?Type lisinopril 20 mg tablet 20 mg PO DAILY #90 tabs 11/22/20 08/03/23 Rx metformin 500 mg tablet,extended 500 mg PO BID 11/23/20 Unknown History release 24 hr metoprolol succinate 50 mg 50 mg PO QDAY #90 tabs 09/24/21 08/03/23 Rx tablet,extended release 24 hr amlodipine 10 mg tablet 10 mg PO DAILY #90 tabs 11/19/21 08/03/23 Rx omeprazole 40 mg capsule,delayed 40 mg PO BID 07/01/22 Unknown History release dulaglutide 0.75 mg/0.5 mL 0.75 mg subcut TU 07/31/23 Unknown History subcutaneous pen injector (Trulicity) metformin 500 mg tablet 1,000 mg PO QHS 07/31/23 Unknown History hydrocodone-acetaminophen 5-325mg 1 tab PO Q6H PRN PRN Pain 3 days 08/19/23 Unknown Rx 5mg-325mg #12 TABLETS lidocaine 5 % topical patch 1 patch topical DAILY #15 ea 08/19/23 Unknown Rx (Lidoderm) naproxen 500 mg tablet (Naprosyn) 500 mg PO BID PRN pain #20 tabs 08/19/23 Unknown Rx prednisone 20 mg tablet 60 mg (3 x 20 mg) PO DAILY #12 08/19/23 Unknown Rx TABLETS Allergy/AdvReac Type Severity Reaction Status Date / Time No Known Allergies Allergy Verified 08/19/23 09:45 Family History Father Hypertension Diabetes Heart disease Mother Diabetes Hypertension Surgical History History of hysteroscopy History of lumpectomy H/O section Social History Smoking Status: Never smoker alcohol intake: never substance use type: does not use caffeine: Yes Type: tea Number of servings: 6 ROS ROS ED Constitutional Constitutional ED: Denies chills or fever(s) Eyes Eyes: Denies change in vision or discharge from eye(s) ENT ENT ED: Denies discharge from eye(s), rhinorrhea or sore throat Cardiovascular Cardiovascular: Denies chest pain Respiratory/Chest Respiratory/Chest: Denies cough or dyspnea Gastrointestinal Gastrointestinal: Denies abdominal pain, nausea or vomiting Genitourinary Genitourinary ED: Denies difficulty urinating or dysuria Musculoskeletal Musculoskeletal: Reports back pain and extremity pain Integumentary Denies Abrasions or rash Neurologic Neurologic: Denies headache(s) or weakness Psychiatric Psychiatric: Denies anxiety or depression Allergic/Immunologic Allergic/Immunologic ED: Denies lip swelling or urticaria EXAM Physical Exam Const Vital Signs: 08/19/23 09:47 Temperature 97.6 F L Temperature Source Temporal Pulse Rate 82 Respiratory Rate 18 Blood Pressure 133/104 H Blood Pressure Mean 113 Pulse Ox 98 Oxygen Delivery Method Room Air Positive well nourished and well developed General Appearance ED: well developed HEENT Reports moist mucous membranes Resp normal respiratory effort and clear to auscultation bilaterally Cardio regular rate and regular rhythm GI soft to palpation and non-tender Back/Spine Back/Spine Narrative: Tenderness outpatient in the low lumbar midline as well as right paraspinal muscles. No overlying erythema or ecchymosis. Extremity normal to inspection Neuro oriented x3 and no sensory deficits noted Motor Exam: strength 5/5 throughout Psych mental status grossly normal Skin no rashes or lesions noted MDM MDM MDM Narrative Medical decision making narrative: Patient is given dose of [place], Naprosyn, prednisone, and a Lidoderm patch here. I did speak with her pain management physician, Dr. Castillo. He is okay with me writing her a prescription for narcotics. I did do an [facility] report and she has not had any narcotics in the past year. This is discussed with the patient. I will write her a short course of [place], Naprosyn, prednisone, and Lidoderm patches. She will monitor her blood sugars and is aware they may go up for short time while she is on the steroid. We also discussed not taking ibuprofen or Aleve [id number] in addition to the naproxen that she has been written. Discharge Plan Triage Chief Complaint: Back ED Provider: Ana Whitfield Dx/Rx/DC Orders Clinical Impression: Back pain, Sciatica Instructions: ED Back and Neck Pain, General, ED Sciatica Prescriptions: New naproxen [Naprosyn] 500 mg tablet 500 mg PO BID PRN (Reason: pain) Qty: 20 0RF prednisone 20 mg tablet 60 mg PO DAILY Qty: 12 0RF lidocaine [Lidoderm] 5 % adhesive patch,medicated 1 patch topical DAILY Qty: 15 0RF Rx Instructions: leave on most painful area for up to 12 hrs hydrocodone-acetaminophen 5-325 mg tablet 1 tab PO Q6H PRN PRN (Reason: Pain) 3 Days Qty: 12 0RF No Action metformin 500 mg tablet extended release 24 hr 500 mg PO BID omeprazole 40 mg capsule,delayed release(DR/EC) 40 mg PO BID metformin 500 mg tablet 1,000 mg PO QHS Trulicity 0.75 mg/0.5 mL pen injector 0.75 mg subcut TU lisinopril 20 mg tablet 20 mg PO DAILY Qty: 90 3RF metoprolol succinate 50 mg tablet extended release 24 hr 50 mg PO QDAY Qty: 90 3RF amlodipine 10 mg tablet 10 mg PO DAILY Qty: 90 3RF Primary Care Provider: Senait Cherry Referrals: Trent Castillo MD [Med Staff - Active Staff] - 1 Week Senait Cherry DO [Primary Care Provider] - Print Language: Frisian Disposition Disposition: Home, Self Care
[2023-08-19 11:35] VITALS: BP 137/69; PULSE 82; RESP 16; TEMP 36.4; O2SAT 99
== END 2023-08-19 11:36 | disposition home or self-care (01) ==
PROVIDERS: Emergency Provider Emergency Medicine; PCP Family Medicine; Visit Provider Emergency Medicine
DX: M54.30 Sciatica, unspecified side (principal); E11.9 Type 2 diabetes mellitus without complications; G89.29 Other chronic pain; Z79.899 Other long term (current) drug therapy; Z79.84 Long term (current) use of oral hypoglycemic drugs
CPT/HCPCS: 99282

== ENCOUNTER 2023-09-10 12:34 | Emergency (ER) | payer MEDICAID, SELFPAY ==
[2023-09-10 12:34] VITALS: BP 147/94; PULSE 81; RESP 14; TEMP 36.6; O2SAT 99
--- NOTE | 2023-09-10 14:14 | EX.ED.DYSGE1 ---
HPI <SIS Peng - Last Filed: 09/10/23 15:26> History of Present Illness Chief Complaint: Back Narrative Narrative: Patient a 43-year-old female with history of obesity, diabetes, chronic back pain who sees pain management. Patient has received injections in the past. She states over the last couple days, she has been unable to move, walk because the pain in her left lower back has been so severe. She denies any bowel or bladder cons denies any fever or chills. This is been ongoing for greater than 20 years. She denies any fever chills nausea or vomiting. [facility] <SIS Peng - Last Filed: 09/10/23 15:26> [facility] Medical History (Updated 09/10/23 @ 15:22 by SIS Peng) Hypertension CPAP (continuous positive airway pressure) dependence Wears glasses Anxiety Marijuana use Diabetes Arthritis Anemia Hepatitis Easy bruising Back pain Migraine headache Dietary restriction Gastric reflux Non-smoker Shortness of breath on exertion Leg cramps History of pain when walking History of echocardiogram Cardiology follow-up encounter History of irregular heartbeat Encounter for screening for COVID-19 Intermittent palpitations Essential (primary) hypertension Back pain Menorrhagia with irregular cycle Home Medications ?Medication ?Instructions ?Recorded ?Last Taken ?Type lisinopril 20 mg tablet 20 mg PO DAILY #90 tabs 11/22/20 08/03/23 Rx metformin 500 mg tablet,extended 500 mg PO BID 11/23/20 Unknown History release 24 hr metoprolol succinate 50 mg 50 mg PO QDAY #90 tabs 09/24/21 08/03/23 Rx tablet,extended release 24 hr amlodipine 10 mg tablet 10 mg PO DAILY #90 tabs 11/19/21 08/03/23 Rx omeprazole 40 mg capsule,delayed 40 mg PO BID 07/01/22 Unknown History release dulaglutide 0.75 mg/0.5 mL 0.75 mg subcut TU 07/31/23 Unknown History subcutaneous pen injector (Trulicity) metformin 500 mg tablet 1,000 mg PO QHS 07/31/23 Unknown History hydrocodone-acetaminophen 5-325mg 1 tab PO Q6H PRN PRN Pain 3 days 08/19/23 Unknown Rx 5mg-325mg #12 TABLETS lidocaine 5 % topical patch 1 patch topical DAILY #15 ea 08/19/23 Unknown Rx (Lidoderm) naproxen 500 mg tablet (Naprosyn) 500 mg PO BID PRN pain #20 tabs 08/19/23 Unknown Rx prednisone 20 mg tablet 60 mg (3 x 20 mg) PO DAILY #12 08/19/23 Unknown Rx TABLETS methocarbamol 750 mg tablet 750 mg PO TID #20 tabs 09/10/23 Unknown Rx tramadol 50 mg tablet 50 mg PO Q8H PRN pain 3 days #12 09/10/23 Unknown Rx tabs Allergy/AdvReac Type Severity Reaction Status Date / Time No Known Allergies Allergy Verified 09/10/23 12:35 Family History Father Hypertension Diabetes Heart disease Mother Diabetes Hypertension Surgical History History of hysteroscopy History of lumpectomy H/O section Social History Smoking Status: Never smoker alcohol intake: never substance use type: does not use caffeine: Yes Type: tea Number of servings: 6 ROS <SIS Peng - Last Filed: 09/10/23 15:26> ROS ED ROS Narrative Constitutional: Negative for fever, chills, weight loss, weakness Eyes: Negative for vision loss, vision change, double vision ENT: Negative for any sore throat, ear pain, congestion Cardiovascular: Negative for any chest pain, tightness, palpitations Respiratory: Negative for any cough, sputum production, hemoptysis, dyspnea, dyspnea on exertion, orthopnea Gastrointestinal: Negative for any abdominal pain, nausea, vomiting, diarrhea, constipation, blood in stool, blood in vomit : Negative for any urinary frequency, dysuria, retention, blood in urine Muscle skeletal: Negative for any neck pain. Positive chronic back pain Neurological: Negative for any headache, syncope, dizziness Skin: Negative for any rashes, itching, abrasions, lacerations Psychiatric: Negative for any depression, anxiety, stress, suicidal ideation, homicidal ideation Hematologic: Negative for any excessive bruising, easy bleeding EXAM <SIS Peng - Last Filed: 09/10/23 15:26> Physical Exam Narrative Exam Narrative: Vital signs reviewed. HEET: Head normocephalic atraumatic, TMs clear bilaterally. Posterior pharynx is clear, moist mucous membranes. Nares clear bilaterally. Neck: Supple with no lymphadenopathy or tenderness. No signs of meningismus. Cardiac: Regular rate and rhythm no murmurs gallops or rubs, equal peripheral pulses bilaterally. Respiratory: Lungs clear to auscultation bilaterally. No chest tenderness. Abdomen: Soft, nontender, nondistended. No abdominal bruit or pulsatile masses. No hepatosplenomegaly Extremities: No peripheral edema, no signs of gross trauma or deformity. Active full range of motion of all extremities. Neuro: Cranial nerves II through XII intact, no focal neurological deficits. Skin: Clean dry and intact with no rash, purpura, petechiae, vesicles or pustules. Backs/flank: No CVA tenderness, no midline spinal tenderness, no deformity. Patient has pain to both the left and right lumbar spinal areas. There is no radiation down each leg. Patient was able to ambulate. No significant weakness. Psych: Normal mood and affect. No SI, HI or acute psychosis. Const Vital Signs: 09/10/23 12:34 Temperature 98 F Temperature Source Temporal Pulse Rate 81 Respiratory Rate 14 Blood Pressure 147/94 H Blood Pressure Mean 111 Pulse Ox 99 Oxygen Delivery Method Room Air <Dr. Amanuel Calderón MD - Last Filed: 09/10/23 14:23> Physical Exam Const Vital Signs: 09/10/23 12:34 Temperature 98 F Temperature Source Temporal Pulse Rate 81 Respiratory Rate 14 Blood Pressure 147/94 H Blood Pressure Mean 111 Pulse Ox 99 Oxygen Delivery Method Room Air [facility] <SIS Peng - Last Filed: 09/10/23 15:26> [facility] Treatment and Re-Evaluation :: Differential diagnosis includes however is not limited to: Equina, spinal abscess, acute on chronic back pain, lumbar strain patient appears to be in no obvious respiratory distress, no evidence of any infectious process. Vital signs are stable. Physical examination is not consistent with any cauda equina, spinal abscess. Physical examination is more consistent with acute on chronic back pain. Patient be given IM Dilaudid, IM Toradol. Patient will be reevaluated. On reevaluation, the patient was feeling better. At this time I do believe the patient be discharged home. Patient was ambulatory. Patient be placed on tramadol as well as tizanidine. She is instructed return for any worsening symptoms. All questions were answered, patient stable for discharge. <Dr. Amanuel Calderón MD - Last Filed: 09/10/23 14:23> [facility] MDM Narrative Medical decision making narrative: I have personally performed a face to face assessment of the patient and have reviewed the JOHN Note. I performed a substantive portion of the visit including all aspects of the following. My aguirre findings include: History is chronic pain in her low back more to the right of spine. Having spasms. More pain than usual without fall or specific injury. No symptoms radiating down her legs. No saddle anesthesia or bowel or bladder dysfunction. Exam is [ ] Medical Decison Making [ ] Other additions or changes: [None] Discharge Plan Triage Chief Complaint: Back ED Midlevel Provider: Bony Herring ED Provider: Amanuel Calderón Dx/Rx/DC Orders Clinical Impression: Chronic back pain Instructions: ED Chronic Pain, ED Back and Neck Pain, General Prescriptions: New methocarbamol 750 mg tablet 750 mg PO TID Qty: 20 0RF tramadol 50 mg tablet 50 mg PO Q8H PRN (Reason: pain) 3 Days Qty: 12 0RF No Action metformin 500 mg tablet extended release 24 hr 500 mg PO BID omeprazole 40 mg capsule,delayed release(DR/EC) 40 mg PO BID metformin 500 mg tablet 1,000 mg PO QHS Trulicity 0.75 mg/0.5 mL pen injector 0.75 mg subcut TU naproxen [Naprosyn] 500 mg tablet 500 mg PO BID PRN (Reason: pain) Qty: 20 0RF prednisone 20 mg tablet 60 mg PO DAILY Qty: 12 0RF lidocaine [Lidoderm] 5 % adhesive patch,medicated 1 patch topical DAILY Qty: 15 0RF Rx Instructions: leave on most painful area for up to 12 hrs hydrocodone-acetaminophen 5-325 mg tablet 1 tab PO Q6H PRN PRN (Reason: Pain) 3 Days Qty: 12 0RF lisinopril 20 mg tablet 20 mg PO DAILY Qty: 90 3RF metoprolol succinate 50 mg tablet extended release 24 hr 50 mg PO QDAY Qty: 90 3RF amlodipine 10 mg tablet 10 mg PO DAILY Qty: 90 3RF Primary Care Provider: Senait Cherry Referrals: Senait Cherry DO [Primary Care Provider] - Activity Restrictions/Additional Instructions: Please continue to follow-up. Print Language: Persian Disposition Disposition: Home, Self Care
[2023-09-10] MEDS: Ketorolac 30 MG/ML Syringe IM (14:20)
[2023-09-10] MEDS: HYDROmorphone 1 MG/ML Syringe IM (14:20)
[2023-09-10] MEDS: Ondansetron ODT 4 MG Tablet PO (14:20)
[2023-09-10 15:30] VITALS: BP 141/90; PULSE 78; RESP 18; TEMP 36.3; O2SAT 97
== END 2023-09-10 15:32 | disposition home or self-care (01) ==
PROVIDERS: Emergency Provider Emergency Medicine; PCP Family Medicine; Visit Provider Emergency Medicine
DX: G89.29 Other chronic pain (principal); E11.9 Type 2 diabetes mellitus without complications; I10 Essential (primary) hypertension; Z79.899 Other long term (current) drug therapy; Z79.84 Long term (current) use of oral hypoglycemic drugs; K21.9 Gastro-esophageal reflux disease without esophagitis; Z79.85 Long-term (current) use of injectable non-insulin antidiabetic drugs
CPT/HCPCS: 96372; 99283

== ENCOUNTER 2023-09-28 06:22 | Day surgery (SDC) | payer MEDICAID, SELFPAY ==
[2023-09-28 06:51] VITALS: BP 135/79; PULSE 82; RESP 16; TEMP 36.8; O2SAT 97; BMI 51.5
[2023-09-28] MEDS: Lactated Ringers 1,000 ML 15 ML IV (06:51)
--- NOTE | 2023-09-28 07:00 | RAD_ITS ---
STUDY: X-RAY - LUMBAR SPINE REASON FOR EXAM: Female, 43 years old. MEDIAL BRANCH NERVE BLOCK -- BILATERAL TECHNIQUE: 4 view(s) of the lumbar spine were obtained. COMPARISON: None FINDINGS: 13 seconds of fluoroscopy the lumbar spine was utilized after during a nerve block and 7 images are submitted for interpretation. . RAD/Lumbar Spine 2 or 3 Views IMPRESSION: Fluoroscopy of the lumbar spine during nerve block. Electronically Signed: Jose Enrique Fried MD at 8:35 EDT ,
[2023-09-28] MEDS: MethylPREDNISolone Acetate 80 MG/ML Vial (08:00)
[2023-09-28] MEDS: Lidocaine 1% (5 ml sdv) 5 ML Vial (08:01)
[2023-09-28] MEDS: Bupivacaine 0.25% 30 ML Vial (08:01)
--- NOTE | 2023-09-28 08:08 | PCM.OPRPT ---
Report of Operation Date of Procedure: 09/28/23 Pre-Operative Diagnosis: Lumbosacral spondylosis, lumbosacral degenerative disc disease, lumbar facet arthropathy Post-Operative Diagnosis: Lumbosacral spondylosis, lumbosacral degenerative disc disease, lumbar facet arthropathy Description of Surgical Findings:: PROCEDURE PERFORMED: Bilateral lumbar medial branch block L4, L5, and S1. ANESTHESIA: Local BLOOD LOSS: Minimal. COMPLICATIONS: None. DESCRIPTION OF PROCEDURE: History and physical of today was reviewed. Risks and benefits of the procedure were explained. The patient understood and agreed to proceed. Informed consent was obtained. IV inserted per routine protocol. The patient was taken to the operating room and placed in the prone position with a pillow positioned underneath the abdomen. The lower back area was prepped and draped in a sterile fashion using iodine x3. Under fluoroscopy guidance on AP view, the L4 through S1 vertebral bodies were visualized. The skin and subcutaneous tissue was anesthetized with approximately 5 mL of 1% lidocaine using a 25-gauge regular needle. Under direct visualization with fluoroscopy, at approximately 25-degree angle, starting on the left L4, ending on the right L4, passing through the L5 and S1 bilaterally, using a 22-gauge 3-1/2-inch spinal needle, the needle was advanced via the skin. The tip of the needle was maneuvered and directed towards the superior medial gutter of the transverse process at the vicinity of the medial branch. Once tip of the needle was in contact with the bone, the needle was pulled approximately 2 mm off the bone. After negative aspiration for blood or CSF and confirmation on AP, oblique as well as lateral view, a total of 12 mL of preservative-free 0.25% Marcaine was injected in divided doses between those six levels. The needles were then removed intact. The patient experienced no sign or symptoms of intrathecal or intravascular injection. The patient experienced no paresthesia. The procedure was completed without any apparent difficulty or any complications. The patient appeared to tolerate it well. ASSESSMENT AND PLAN: This is a 43-year-old female with lumbosacral spondylosis, lumbosacral degenerative disc disease, lumbar facet arthropathy status post bilateral lumbar medial branch block L4-S1, patient will continue her current medications, patient will follow in approximately 2 weeks for reevaluation.
[2023-09-28 08:10] LABS: Bedside Glucose 182 mg/dL (74-106)
== END 2023-09-28 08:52 | disposition home or self-care (01) ==
LOC: SDC 06:25 → AC 06:25
PROVIDERS: PCP Family Medicine; Referring Provider Anesthesiology Pain Medicine; Visit Provider Anesthesiology Pain Medicine
PROC: 3E0S3BZ Introduction of Anesthetic Agent into Epidural Space, Percutaneous Approach (ICD-10-PCS; CPT 62322; principal; 2023-09-28 07:55)
DX: M47.817 Spondylosis without myelopathy or radiculopathy, lumbosacral region (principal); E11.9 Type 2 diabetes mellitus without complications; M51.37 Other intervertebral disc degeneration, lumbosacral region; M46.96 Unspecified inflammatory spondylopathy, lumbar region; G47.33 Obstructive sleep apnea (adult) (pediatric); I10 Essential (primary) hypertension; Z79.84 Long term (current) use of oral hypoglycemic drugs; Z79.899 Other long term (current) drug therapy
CPT/HCPCS: 64493; 64494; 01992; 64483; 72100; 82962; J7120

== ENCOUNTER 2023-12-22 11:36 | Emergency (ER) | payer MEDICAID, SELFPAY ==
[2023-12-22 11:36] VITALS: BP 170/103; PULSE 113; RESP 16; TEMP 37; O2SAT 98
[2023-12-22] MEDS: morphine 10 MG/ML Syringe IM (12:12)
--- NOTE | 2023-12-22 12:13 | ED.VIS.BACK ---
HPI History of Present Illness Chief Complaint: Back Informant: spouse/S.O. Onset/Context/Timing Current Severity: Moderate Maximum Severity: Moderate Narrative Narrative: 43-year-old female known history of hypertension, diabetes and degenerative disc disease of her lumbar spine. She previously saw a local orthopedic medical front desk specialist who did not think she had an need for surgical intervention. She has been under the care of Dr. Arnold of pain management. He did 2 different types of injections in August and September without any significant relief. She has not been discharged from the practice. She presents today with several weeks history of acute on chronic back pain. Worse with movement. Denies fever or trauma. No bowel or bladder incontinence. She has an upcoming appointment to see Dr. Jay of orthopedic spine. She has had prior MRIs. Prior similar symptoms: Yes Recent Illness/Hospitalization: No PFSH PFSH Medical History Hypertension CPAP (continuous positive airway pressure) dependence Wears glasses Anxiety Marijuana use Diabetes Arthritis Anemia Hepatitis Easy bruising Back pain Migraine headache Dietary restriction Gastric reflux Non-smoker Shortness of breath on exertion Leg cramps History of pain when walking History of echocardiogram Cardiology follow-up encounter History of irregular heartbeat Encounter for screening for COVID-19 Intermittent palpitations Essential (primary) hypertension Back pain Menorrhagia with irregular cycle Home Medications ?Medication ?Instructions ?Recorded ?Last Taken ?Type lisinopril 20 mg tablet 20 mg PO DAILY #90 tabs 11/22/20 09/27/23 Rx metformin 500 mg tablet,extended 500 mg PO BID 11/23/20 09/27/23 History release 24 hr metoprolol succinate 50 mg 50 mg PO QDAY #90 tabs 09/24/21 09/27/23 Rx tablet,extended release 24 hr amlodipine 10 mg tablet 10 mg PO DAILY #90 tabs 11/19/21 09/27/23 Rx omeprazole 40 mg capsule,delayed 40 mg PO BID 07/01/22 09/27/23 History release dulaglutide 0.75 mg/0.5 mL 0.75 mg subcut TU 07/31/23 09/07/23 History subcutaneous pen injector (Trulicity) metformin 500 mg tablet 1,000 mg PO QHS 07/31/23 09/27/23 History hydrocodone-acetaminophen 5-325mg 1 tab PO Q6H PRN PRN Pain 3 days 08/19/23 Unknown Rx 5mg-325mg #12 TABLETS lidocaine 5 % topical patch 1 patch topical DAILY #15 ea 08/19/23 Unknown Rx (Lidoderm) naproxen 500 mg tablet (Naprosyn) 500 mg PO BID PRN pain #20 tabs 08/19/23 Unknown Rx methocarbamol 500 mg tablet 500 mg PO Q8H #20 tabs 12/22/23 Unknown Rx tramadol 50 mg tablet 50 mg PO BID PRN pain #20 tabs 12/22/23 Unknown Rx Allergy/AdvReac Type Severity Reaction Status Date / Time No Known Allergies Allergy Verified 12/22/23 11:38 Family History Father Hypertension Diabetes Heart disease Mother Diabetes Hypertension Surgical History History of hysteroscopy History of lumpectomy H/O section Social History Smoking Status: Never smoker alcohol intake: never substance use type: does not use caffeine: Yes Type: tea Number of servings: 6 ROS ROS ED ROS Narrative Back pain. No recent illness or fever. No bowel or bladder incontinence. Constitutional Constitutional ED: Denies chills or fever(s) Eyes Eyes: Denies blurry vision Cardiovascular Cardiovascular: Denies chest pain Respiratory/Chest Respiratory/Chest: Denies dyspnea Gastrointestinal Gastrointestinal: Denies abdominal pain Genitourinary Genitourinary ED: Denies dysuria or hematuria Musculoskeletal Musculoskeletal: Reports back pain; Denies arthralgias Integumentary Denies abscess Neurologic Neurologic: Denies headache(s) Psychiatric Psychiatric: Reports depression; Denies anxiety Endocrine Endocrinology: Denies cold intolerance Hematologic/Lymphatic Hematologic/Lymphatic: Denies easy bleeding Allergic/Immunologic Allergic/Immunologic ED: Denies mouth swelling EXAM Physical Exam Narrative Exam Narrative: 43-year-old female sitting upright in bed. Significant other at bedside. She is emotionally upset and tearful. Vital signs are stable. She is afebrile. H EENT exam unremarkable atraumatic. Neck nontender. Lungs clear. Heart tachycardic rate of 03/16/2009 no murmur. Chest wall ribs nontender. Abdomen soft nontender. Moving all 4 extremities. 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 She has normal dorsi and plantarflexion. Normal medial thigh and lower leg sensation. No cauda equina. She has limited effort she will not attempt to lift either leg because she says it causes her pain in her back. Her back there is no signs of trauma. There is no prior back surgical scar. Currently she has no muscle spasm. Neurologically she is awake and alert. No focal motor or weakness or loss of sensation. Const Vital Signs: 12/22/23 11:36 Temperature 98.6 F Temperature Source Oral Pulse Rate 113 H Respiratory Rate 16 Blood Pressure 170/103 H Blood Pressure Mean 125 Pulse Ox 98 Oxygen Delivery Method Room Air Positive well nourished and well developed General Appearance ED: well developed; Negative for pallor HEENT Reports moist mucous membranes Negative for trauma or tenderness Eyes PERRL and EOMs intact bilaterally Neck no lymphadenopathy General: Negative for tenderness Resp normal respiratory effort and clear to auscultation bilaterally Auscultation: Negative for rales, rhonchi or wheezes Cardio regular rhythm, S1 normal heart sound, S2 normal heart sound and no murmurs; Negative for regular rate Rate: tachycardic GI normal to inspection, nondistended, normoactive bowel sounds, soft to palpation, non-tender, non-distended and no masses Palpation: Negative for tender, guarding or rebound tenderness present Back/Spine normal to inspection and no thoracic nor lumbar tenderness Back/Spine Narrative: No reproducible pain at this time. No back spasm. No signs of trauma. Thoracic Spine / Upper Back: Negative for paraspinal muscle tenderness Extremity normal to inspection and no clubbing, cyanosis or edema General Extremety ED: Negative for edema or tenderness General Extremity: Negative for edema Neuro oriented x3 and no sensory deficits noted Sensorium / Orientation: alert; Negative for confused, lethargic or stuporous Motor Exam: strength 5/5 throughout Psych Negative for mental status grossly normal Mood & Affect: sad and tearful Skin no rashes or lesions noted and no wounds General Skin Exam: Negative for jaundice or pallor Rashes: No rashes noted Trauma: Negative for abrasion or puncture Wounds: Negative for wounds noted MDM MDM MDM Narrative Medical decision making narrative: 43-year-old female with acute on chronic back pain. Seeing pain management. Should be given an IM injection of morphine for pain. She requested to be placed back on her prior muscle relaxant Robaxin that worked for her in the past which I wrote her prescription for. Should be given limited all TRAM for back pain. She has an upcoming appointment to see medical front desk specialist. She has had prior imaging and MRIs. She does not need acute imaging or lab work at this time. Discharge Plan Triage Chief Complaint: Back ED Provider: Jakob Torres Dx/Rx/DC Orders Clinical Impression: DDD (degenerative disc disease), lumbar, Back pain Instructions: ED Back Pain (Acute or Chronic), ED Degenerative Disk Disease Prescriptions: New tramadol 50 mg tablet 50 mg PO BID PRN (Reason: pain) Qty: 20 0RF methocarbamol 500 mg tablet 500 mg PO Q8H Qty: 20 0RF No Action metformin 500 mg tablet extended release 24 hr 500 mg PO BID omeprazole 40 mg capsule,delayed release(DR/EC) 40 mg PO BID metformin 500 mg tablet 1,000 mg PO QHS Trulicity 0.75 mg/0.5 mL pen injector 0.75 mg subcut TU naproxen [Naprosyn] 500 mg tablet 500 mg PO BID PRN (Reason: pain) Qty: 20 0RF lidocaine [Lidoderm] 5 % adhesive patch,medicated 1 patch topical DAILY Qty: 15 0RF Rx Instructions: leave on most painful area for up to 12 hrs hydrocodone-acetaminophen 5-325 mg tablet 1 tab PO Q6H PRN PRN (Reason: Pain) 3 Days Qty: 12 0RF lisinopril 20 mg tablet 20 mg PO DAILY Qty: 90 3RF metoprolol succinate 50 mg tablet extended release 24 hr 50 mg PO QDAY Qty: 90 3RF amlodipine 10 mg tablet 10 mg PO DAILY Qty: 90 3RF Primary Care Provider: Senait Cherry Referrals: Adriel Perez MD [Med Staff - Active Staff] - As soon as possible Senait Cherry DO [Primary Care Provider] - As Needed Activity Restrictions/Additional Instructions: Ultram or tramadol for pain as needed. Your muscle relaxant as needed and prescribed. Call and follow-up with Dr. Jay's office. Call and see if they have a cancellation list if you might be able move up your appointment earlier than the . Print Language: Persian Disposition Disposition: Home, Self Care
[2023-12-22] MEDS: Ondansetron 8 MG Tablet PO (12:22)
[2023-12-22 12:23] VITALS: BMI 48.4
[2023-12-22 12:24] VITALS: BP 156/79; PULSE 97; RESP 20; TEMP 36.6; O2SAT 100
== END 2023-12-22 12:33 | disposition home or self-care (01) ==
PROVIDERS: Emergency Provider Emergency Medicine; PCP Family Medicine; Visit Provider Emergency Medicine
DX: M51.369 Other intervertebral disc degeneration, lumbar region without mention of lumbar back pain or lower extremity pain (principal); E11.9 Type 2 diabetes mellitus without complications
CPT/HCPCS: 96372; 99282